=== PATIENT | male | born 1945 | race Caucasian/White ===

== ENCOUNTER 2016-05-28 20:26 | Inpatient (IN) | payer MEDICARE, BC ==
--- NOTE | ~2016-05-28 | CN ---
Consultation Report [place] [id number] [place]. [address] NAME: MIAN STANLEY : 45 STATUS : ADM IN [facility]#: [id number] AGE: 70 ADM/REG DATE : 05/29/16 MR#: [id number] REPORT SERV DATE: 05/30/16 DICTATED BY: REINALDO MCRAE DATE: 05/30/16 REPORT STATUS : Draft TRANSCRIBED BY: MODL DATE: 05/30/16 HEMATOLOGY CONSULTATION DATE OF CONSULTATION: REASON FOR CONSULTATION: Lymphadenopathy, suspected lymphoma. HISTORY OF PRESENT ILLNESS: The patient is a very pleasant 70-year-old gentleman with a past medical history significant for CAD, diabetes, and hypertension. He presented to the emergency room recently with slowly progressive weakness and shortness of breath. The patient and his family tell me the symptoms have worsened over the past twelve months. He has had a weight loss of approximately 30 pounds. There is no history of fevers, chills, or drenching night sweats. Mr. Stanley states that, he stopped taking his diabetic and hypertension medications approximately nine months ago. No reason is offered as an explanation. On presentation, admission labs were significant for abnormal liver function tests, elevated bilirubin as well as anemia and thrombocytopenia. Imaging revealed diffuse lymphadenopathy involving the mediastinum, axilla, abdomen. In addition, splenomegaly was present as well as ascites. The patient also had bilateral pleural effusions. Pulmonary was consulted, and yesterday the patient underwent diagnostic and therapeutic thoracentesis. Cytology was sent and is currently pending. Presently, Mr. Stanley is fatigued, somewhat terse in his replies. His affect is flat. He denies pain. PAST MEDICAL HISTORY: 1. Diabetes. 2. Coronary artery disease. 3. Hypertension. PAST SURGICAL HISTORY: Denies. ALLERGIES: FLEXERIL, UNKNOWN REACTION. CURRENT MEDICATIONS: Include albuterol, aspirin, carvedilol, Lovenox, Zetia, insulin, Spiriva, Levaquin, lisinopril, Claritin, nicotine patches, simvastatin, and tiotropium inhaler. FAMILY HISTORY: Notable for diabetes and CVA. SOCIAL HISTORY: The patient is . He is a smoker. No history of heavy alcohol use. Consultation Report [place] [address] [facility] [place]. [address] NAME: MIAN STANLEY DOB: [birth year] STATUS : ADM IN PAT#: [id number] AGE: 70 ADM/REG DATE : 05/29/16 MR#: [id number] REPORT SERV DATE: 05/30/16 DICTATED BY: REINALDO MCRAE. DATE: 05/30/16 REPORT STATUS : Draft TRANSCRIBED BY: SULY DATE: 05/30/16 REVIEW OF SYSTEMS: Eleven system review of systems was performed and is positive for those things noted in the HPI. PHYSICAL EXAMINATION: VITAL SIGNS: Temperature 97.7, pulse 100, respirations 20, blood pressure 130/57. GENERAL: Chronically ill-appearing male, in no acute distress. HEAD: Atraumatic and normocephalic. HEENT: Scleral icterus is noted. Some bitemporal wasting noted. No thrush. NECK: Lymphadenopathy noted. No thyromegaly. PULMONARY: Coarse breath sounds bilaterally. Decreased at bases. CARDIAC: Regular rate and rhythm with systolic murmur appreciated. ABDOMEN: Mildly distended. Nontender. Unable to palpate spleen tip. EXTREMITIES: Superficial bruising noted. Jaundice. Lower extremity edema noted. NEURO: Alert and oriented x3. Moves all extremities. LYMPH NODE SURVEY: Cervical lymphadenopathy appreciated. Bilateral axillary lymphadenopathy also prominent. LABORATORY STUDIES: CBC, white count 14.4, hemoglobin 10, platelets 101. Chemistries, sodium 130, glucose 125, total protein 5.7, albumin 2.7, bilirubin 4.5, alkaline phosphatase 644, ALT 31, AST 25. ASSESSMENT AND PLAN: This is an unfortunate 70-year-old gentleman with a history of coronary artery disease, diabetes, and hypertension, who presents with diffuse lymphadenopathy concerning for lymphoma or other malignancy. I agree with your workup. I await results from thoracentesis, particularly cytology. Occasionally, we were able to make a diagnosis from the pleural fluid. If this test is nondiagnostic, then I would recommend excisional lymph node biopsy. I will follow with you. More recommendations to follow once we have established the tissue diagnosis. BRIELLE/SULY Reinaldo Mcrae M.D. / [id number] CC: Consultation Report [facility] [address] [place]. [address] NAME: MIAN STANLEY : [birth year] STATUS : ADM IN PAT#: [id number] AGE: 70 ADM/REG DATE : 05/29/16 MR#: [id number] REPORT SERV DATE: 05/30/16 DICTATED BY: REINALDO MCRAE DATE: 05/30/16 REPORT STATUS : Draft TRANSCRIBED BY: MODL DATE: 05/30/16 Mark Anderson MD
--- NOTE | ~2016-05-28 | PUL ---
[id number] [place]. [address] NAME: MIAN HOLLAND : [birth year] STATUS : ADM IN PAT#: [id number] AGE: 70 ADM/REG DATE : 05/29/16 MR#: [id number] REPORT SERV DATE: 06/05/16 DICTATED BY: ARON BRAUN DATE: 06/05/16 REPORT STATUS : Draft TRANSCRIBED BY: MODL DATE: 06/05/16 PULMONARY FUNCTION TEST DATE OF TESTIN06/04/2016 DIAGNOSIS: Left pleural effusion. COMMENTS: "Patient tried multiple attempts. States he has no more energy to try more testing." RESULTS: 1. FEV1 of 1.60 L (51% of predicted). 2. FVC 2.33 L (55% of predicted). 3. FEV1/FVC ratio 68%. 4. DLCO 33% of predicted. 5. DLCO/VA 71% of predicted. IMPRESSION: There is moderately severe obstructive ventilatory impairment. The forced vital capacity has reduced suggestive of restriction. The diffusing capacity is severely reduced, but corrects to a mild reduction when adjusted for alveolar volume. There are other prior studies for comparison purposes. PS/MODL Aron Braun M.D. / [id number] CC: Juan Lowe M.D.
--- NOTE | ~2016-05-28 | CN ---
Consultation Report [facility] [address] [place]. [address] NAME: MIAN STANLEY : 45 STATUS : ADM IN [facility]#: [id number] AGE: 70 ADM/REG DATE : 05/29/16 MR#: [id number] REPORT SERV DATE: 06/03/16 DICTATED BY: LISSETTE RANDHAWA DATE: 06/03/16 REPORT STATUS : Draft TRANSCRIBED BY: MODL DATE: 06/03/16 GI CONSULTATION NOTE DATE OF CONSULTATION: 06/02/2016 REASON FOR CONSULTATION: Overload. HISTORY OF PRESENT ILLNESS: Mr. Stanley is a 70-year-old, white male, who initially presented to [facility] on the with weakness, pruritus, dyspnea on exertion, as well as orthopnea. This had been ongoing for several months at least, but he had been reluctant to seek medical attention. He has a history of hypertension; coronary artery disease, status post stent in the RCA in 2013; diabetes; hypertension. He has never seen a mechanical commissioning engineer nor a chip frier in the past. He denies any alcohol use. Denies any known history of viral hepatitis or any known liver disease. FAMILY HISTORY: Diabetes and stroke. PAST MEDICAL HISTORY: Hypertension; coronary artery disease, status post stent in RCA in 2013; diabetes; and hypertension. SOCIAL HISTORY: The patient is . Continues to smoke cigarettes. Denies any alcohol or drug use. 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 ALLERGIES: FLEXERIL. MEDICATIONS: Reviewed. PHYSICAL EXAMINATION: VITAL SIGNS: The patient is afebrile. His vital signs are stable. GENERAL: The patient is awake, alert, and oriented x3. He appears chronically ill and older than stated age, but is in no acute distress. HEENT: Bitemporal wasting and scleral icterus. NECK: Mucous membranes moist. CARDIAC: S1, S2. CHEST: Clear. ABDOMEN: Distended. Bowel sounds normoactive. Positive fluid wave. LABORATORY DATA: Showed WBC 14.2, hemoglobin 8.9, hematocrit 25.3, platelets 94. INR is 1.2. Sodium 126, potassium 3.8, chloride 86, bicarb 30, BUN 16, creatinine 0.76, glucose 84. Bilirubin 2.5, AST 27, ALT 19, alkaline phosphatase 525, lipase 64. Bilirubin had initially been 4.5, also on admission. The patient had thoracentesis recently. IMPRESSION/PLAN: Fluid overload of unclear etiology. We will evaluate recent imaging that had been performed earlier to see if there are any signs of chronic liver disease, although Consultation Report [place] [id number] [place]. [address] NAME: MIAN STANLEY : 45 STATUS : ADM IN PAT#: [id number] AGE: 70 ADM/REG DATE : 05/29/16 MR#: [id number] REPORT SERV DATE: 06/03/16 DICTATED BY: LISSETTE RANDHAWA DATE: 06/03/16 REPORT STATUS : Draft TRANSCRIBED BY: MODAmy DATE: 06/03/16 in looking serologically given his thrombocytopenia and elevated INR, these are signs that his liver disease has been ongoing for quite some time. His MELD score is calculated to be 12, and if we factor in his sodium, it is calculated to be 22. Laboratory testing has already been ordered to further evaluate any causes of chronic liver disease, including viral hepatitis panel, iron including ferritin for hemochromatosis. I would also check JIMMIE, AMA, and anti-smooth muscle antibody. We will continue to follow with you. SAMMY/SULY Lissette Randhawa MD / [id number] CC: Juan Lowe M.D.
--- NOTE | ~2016-05-28 | OP ---
Record Of Operation [facility] [address] [place]. [address] NAME: MIAN HOLLAND : 45 STATUS : ADM IN PAT#: [id number] AGE: 70 ADM/REG DATE : 05/29/16 MR#: [id number] REPORT SERV DATE: 06/05/16 DICTATED BY: BRITTANI KAMINSKI III DATE: 06/05/16 REPORT STATUS : Draft TRANSCRIBED BY: MODL DATE: 06/05/16 DATE OF PROCEDURE: 06/05/2016 PREOPERATIVE DIAGNOSIS: Hodgkin lymphoma with need for Port-A-Cath placement to allow for chronic IV access for chemotherapy. POSTOPERATIVE DIAGNOSIS: Hodgkin lymphoma with need for Port-A-Cath placement to allow for chronic IV access for chemotherapy. PROCEDURE: Right subclavian Port-A-Cath placement with fluoroscopy. SURGEON: Brittani Kaminski M.D. ANESTHESIA: General with intubation. COMPLICATIONS: None. ESTIMATED BLOOD LOSS: Less than 5 mL. SPECIMENS: None. DRAINS: None. LAP AND SPONGE COUNT: Correct x3. BRIEF HISTORY: This 70-year-old male was recently diagnosed with malignant lymphoma. We were asked by his medical oncologist to place a Port-A-Cath to allow for chronic IV access for chemotherapy. This procedure, the risks, benefits, and alternatives, including not limited to the risk for bleeding, infection, pneumothorax, air embolus, pericardial tamponade, failure of the port to function, infection of the port or subclavian vein thrombosis requiring removal of the port, dislodgement of the Port-A-Cath tubing requiring extraction, and unforeseen complications including deep venous thrombosis, pulmonary embolus, myocardial infarction, stroke, pneumonia, and , were fully and completely explained to the patient prior to surgery. His questions were answered. He understood the risks and agreed to surgery as planned. DESCRIPTION OF PROCEDURE: After being properly identified and after discussing risks of surgery with him again in the preoperative area, the patient was taken to the operating room and placed in the supine position on the operating room table. General anesthesia was administered and he was intubated without difficulty. The upper chest and neck areas were prepped and draped sterilely in the usual fashion. After an appropriate "time-out" per JCAHO standards, an 18-gauge needle was used to identify the right subclavian vein. The vein was identified on the first pass of the needle. A guidewire was passed through the needle and the needle was removed. Fluoroscopy was performed, confirming the tip of the guidewire to be in the correct position in the superior vena cava. A small transverse incision was then made at the exit site of the guidewire from the skin. A subcutaneous Record Of Operation [facility] [address] [place]. [address] NAME: MIAN HOLLAND : 45 STATUS : ADM IN PAT#: [id number] AGE: 70 ADM/REG DATE : 05/29/16 MR#: [id number] REPORT SERV DATE: 06/05/16 DICTATED BY: BRITTANI KAMINSKI III DATE: 06/05/16 REPORT STATUS : Draft TRANSCRIBED BY: SULY DATE: 06/05/16 infraclavicular pocket was made of the appropriate size for the Port-A-Cath housing. The Port-A-Cath housing and tubing were assembled, flushed with a heparin solution, and the tubing cut to the appropriate length. The introducer was then placed over the guidewire as the guidewire and the inner sheath were removed. The Port-A-Cath tubing was then placed through the sheath. This went very smoothly. The Port-A-Cath was positioned in the infraclavicular pocket. It was secured in place with 2-0 silk sutures. Repeat fluoroscopy was performed, confirming the tip of the tubing to be in the correct position in the superior vena cava. The port was accessed with a Nicole needle. It was noted to aspirate blood easily. It was then flushed with heparin solution and noted to flush easily. Hemostasis was assured. The subcutaneous tissue was closed with a running 3-0 Vicryl suture, and the skin was closed with running subcuticular 4-0 Monocryl stitch. The incision was injected with 0.5% Marcaine. Dressings were applied. Anesthesia was reversed. The patient was taken to recovery room in stable condition. He tolerated the procedure well. His family was informed of results of surgery. Chest x-ray is pending at this time. The patient remains in the hospital under the care of the Hospitalist Service. MELIZA/SULY Brittani Kaminski III, M.D. / [id number] CC: Juan Lowe M.D.
--- NOTE | ~2016-05-28 | IDS ---
Interim Discharge Summary [facility] [address] [place]. [address] NAME: MINA HOLLAND : 45 STATUS : ADM IN LOC[facility] WITHIN [facility]#: [id number] AGE: 70 ADM/REG DATE : 05/29/16 MR#: [id number] REPORT SERV DATE: 06/01/16 DICTATED BY: MARK GARCIA DATE: 06/01/16 REPORT STATUS : Draft TRANSCRIBED BY: MODL DATE: 06/01/16 ADMISSION DATE: 05/29/2016 DISCHARGE DATE: WORKING DIAGNOSES: 1. Probable lymphoma with extensive adenopathy, getting excisional biopsy of axillary lymph node today. 2. Bilateral pleural effusion, left greater than right, status post left thoracentesis with negative malignant cells in the pleural fluid. 3. Periportal edema with hyperbilirubinemia and elevated LFTs, unclear etiology. 4. Splenomegaly. 5. Coronary artery disease. 6. Diabetes type 2. CONSULTS: 1. Pulmonology. 2. Oncology. 3. General Surgery. 4. GI. PROCEDURES: 1. Thoracentesis 05/29/2016, the pleural fluid was negative for malignant cells. 2. Excisional biopsy, scheduled for today. IMAGIN. CT of the chest, abdomen, and pelvis showed extensive adenopathy, likely related to lymphoma or leukemia. 2. Echocardiogram performed 05/30/2016, showed a normal ejection fraction and overall benign. HOSPITAL COURSE: This is a 70-year-old gentleman, who was admitted to the hospital with shortness of breath. The patient was found to have bilateral pleural effusions. For details, please refer to H and P by Dr. Javed. In summary, the patient had a CT of the abdomen and pelvis done due to hyperbilirubinemia, which showed extensive adenopathy. The patient then, also had CT of the chest, which again showed extensive adenopathy. Pulmonology was consulted to perform a thoracentesis. Oncology was also consulted subsequently. Pleural fluid did not have any malignant cells and thus General Surgery was consulted for excisional biopsy, which will be today. Also, regarding periportal edema with hyperbilirubinemia as one of the findings on CT of the abdomen and pelvis, it was initially thought to be possibly due to congestive heart failure; however, echocardiogram was benign. GI was consulted today for that. DISPOSITION: To follow up excisional biopsy preliminary results and oncologist's recommendations. Also, follow up on GI consultation that was placed today. Interim Discharge Summary [place] [address] [place]. [address] NAME: MIAN HOLLAND : [birth year] STATUS : ADM IN LOC[facility] WITHIN [facility]#: [id number] AGE: 70 ADM/REG DATE : 05/29/16 MR#: [id number] REPORT SERV DATE: 06/01/16 DICTATED BY: MARK GARCIA DATE: 06/01/16 REPORT STATUS : Draft TRANSCRIBED BY: SULY DATE: 06/01/16 [facility] [place]SULY Mark Garcia MD / [id number] CC: Mark Garcia MD
--- NOTE | ~2016-05-28 | CN ---
Consultation Report [facility] [address] [place]. [address] NAME: MIAN HOLLAND : 45 STATUS : ADM IN [facility]#: [id number] AGE: 70 ADM/REG DATE : 05/29/16 MR#: [id number] REPORT SERV DATE: 06/04/16 DICTATED BY: BRITTANI KAMINSKI III DATE: 06/04/16 REPORT STATUS : Draft TRANSCRIBED BY: SULY DATE: 06/04/16 DATE OF CONSULTATION: 06/04/2016 ADDENDUM: We have been asked to place a Port-A-Cath for this patient to allow for chronic IV access for his recently diagnosed malignancy. We will schedule him for subclavian Port-A- Cath placement. This procedure, the risks, benefits, and alternatives, including not limited to the risk for bleeding, infection, pneumothorax, air embolus, pericardial tamponade, failure of the port to function, infection of the port, or subclavian vein thrombosis requiring removal the port, dislodgement of the Port-A-Cath tubing requiring extraction, and unforeseen complications including deep venous thrombosis, pulmonary embolus, myocardial infarction, stroke, pneumonia, and , have been explained the patient prior to surgery. His questions have been answered. He understands the risk and agrees to surgery as planned. MELIZA/SULY Brittani Kaminski III, M.D. / [id number] CC: Juan Lowe M.D.
--- NOTE | ~2016-05-28 | HP ---
History And Physical [id number] [place]. [address] NAME: MIAN HOLLAND : 45 STATUS : ADM IN PAT#: [id number] AGE: 70 ADM/REG DATE : 05/29/16 MR#: [id number] REPORT SERV DATE: 05/29/16 DICTATED BY: NANCY PATEL DATE: 05/29/16 REPORT STATUS : Draft TRANSCRIBED BY: MODL DATE: 05/29/16 DATE OF ADMISSION: 05/29/2016 CHIEF COMPLAINT: 70-year-old male presenting with volume overload, abdominal distention, and severe itching. HISTORY OF PRESENT ILLNESS: The patient's history was obtained through careful interview with the patient, , and son, coupled with review of [facility] medical records. The patient quit taking all of his chronic medications about 9 months ago. He had previously been on blood thinner for coronary artery disease(Effient). Blood pressure medication such as lisinopril and clonidine and he had also been on diabetic medications such as Amaryl(the patient can give no clear explanation for why he decided to stop taking his medications but he kept most of this from his family and also over this last 9 months has refused to go see a physician to follow up his general care). Over these last 9 months then he has lost about 30 pounds and has become increasingly and progressively debilitated and ill. One thing that has really bothered him has been itching, that has been present for about 9 months but has really progressed over these last four to six weeks and has caused considerable agitation. The patient has also had shortness of breath characterized by dyspnea on exertion but also suffers from orthopnea and significant paroxysmal nocturnal dyspnea in the evening becoming quite restless. He has had a very good appetite and the family states "he constantly eats" despite having weight loss. He has also developed increasing lower extremity edema over the last five months or so but it is really progressed again over these last four or five weeks. He also describes abdominal distention with diffuse abdominal discomfort, nonfocal, tightness quality, 7 to 8/10 severity. Occasionally, he has had loose stools with bowel incontinence. He describes nausea, but no vomiting. Over the last two months, he has had 5 falls the family believes and has finally over the last week or two become "too weak to walk even." REVIEW OF SYSTEMS: Otherwise, 14-point review of systems was obtained and was negative. PAST MEDICAL HISTORY: 1. Coronary artery disease, status post stent placement x2 to the RCA in 2013 under the History And Physical [id number] [facility] [place]. [address] NAME: MIAN HOLLAND : 45 STATUS : ADM IN [facility]#: [id number] AGE: 70 ADM/REG DATE : 05/29/16 MR#: [id number] REPORT SERV DATE: 05/29/16 DICTATED BY: NANCY PATEL DATE: 05/29/16 REPORT STATUS : Draft TRANSCRIBED BY: SULY DATE: 05/29/[address] Jung. 2. Diabetes. 3. Hypertension. PAST SURGICAL HISTORY: Denies any. ALLERGIES: FLEXERIL. SOCIAL HISTORY: He is . Smokes cigarettes. No alcohol abuse. Retired from the [employer] Has two sons. FAMILY HISTORY: Diabetes, stroke. No heart disease. No liver disease in the family. CURRENT MEDICATIONS: The patient has been taking anti-itching medication but has been noncompliant with clonidine, Amaryl, lisinopril, and Effient. PHYSICAL EXAMINATION: VITAL SIGNS: Temperature 98.3, pulse 88, blood pressure 133/51, respiratory rate 16, O2 saturation 98% on 2 L nasal cannula. GENERAL: This patient is "bizarre" by my own evaluation. He has an odd affect and seems at times to be poorly oriented to his recent history and slow in his response to questioning. He appears chronically ill but in no apparent acute distress by my exam. HEENT: Pupils equal, round, and reactive to light. No conjunctival pallor. There is mild scleral icterus. Nares are patent. Oropharynx is clear of obstruction. Moist mucous membranes. NECK: Trachea midline. No thyromegaly. LYMPH: No cervical lymphadenopathy. No supraclavicular lymphadenopathy. RESPIRATORY: The patient has absent breath sounds in the left lung and he has dullness to percussion that extends from the base of the lung up to about 3/4 heights on his left lung suggesting quite large and extensive left pleural effusion. There are wet rales at the base of the right lung. No wheezes. No rhonchi. The patient does have a labored respiratory effort. CARDIOVASCULAR: Regular rate and rhythm. I do appreciate 3/6 "singing" high-pitched murmur through the precordium that also seems to radiate upward through his chest and towards the neck. No rubs. I do not appreciate a gallop at this time. There is some jugular venous distention on the right side that pulsates and the patient does have significant deeply pitting lower extremity edema that extends up to the thighs symmetrically. ABDOMEN: Quite distended by exam but no tympanic resonance on percussion but I do not appreciate at this time specific fluid wave. I do not appreciate hepatosplenomegaly either by exam. He is diffusely tender by exam but there is no guarding. No rebound. It is a nonfocal exam. DERMATOLOGIC: The patient is obviously jaundiced. He seems to have peripheral pallor as well but no cyanosis and he has dry, warm extremities. PSYCHIATRIC: The patient has a flat and bizarre affect. He seems to be in an irritable mood but denies depression nor anxiety. He is alert, slow in his responses but is oriented to location and general aspects of time but seems poorly oriented to recent history. History And Physical [address] [address] NAME: MIAN HOLLAND : 45 STATUS : ADM IN [facility]#: [id number] AGE: 70 ADM/REG DATE : 05/29/16 MR#: [id number] REPORT SERV DATE: 05/29/16 DICTATED BY: NANCY PATEL DATE: 05/29/16 REPORT STATUS : Draft TRANSCRIBED BY: SULY DATE: 05/29/16 LABORATORY DATA: White blood count 14.7, hemoglobin 9.6, hematocrit 29, platelets 99. Sodium 131, potassium 3.9, chloride 91, bicarb 28, BUN 11, creatinine 0.6, glucose 143. Brain natriuretic peptide 494, albumin 2.8. Troponin negative. Total bilirubin 3.6, alkaline phosphatase 642, ALT 33, AST 27, INR 1.2. Alcohol level negative. Urinalysis shows 3 hyaline casts but no evidence of infection. STUDIES: Chest x-ray shows a very large pleural effusion and large right atelectasis versus infiltrate/edema? ASSESSMENT AND PLAN: 1. Large left pleural effusion question malignancy versus other cause. We will ask for an ultrasound-guided thoracentesis for diagnostic and therapeutic purposes. 2. Congestive heart failure exacerbation, new diagnosis, with a murmur. We will check an echocardiogram. Place on IV diuretic, ABDIFATAH inhibitor, Coreg. 3. Cholestatic liver disease. I would like to rule out cholelithiasis but no abdominal pain that is specific on exam. Check a CT scan of the abdomen and pelvis. Check hepatitis panel. Consider the possibility of a congestive liver disease from chronically uncontrolled congestive heart failure and volume overload? I also believe the patient may have likely a concomitant ascites? and I questioned the possibility of malignancy? 4. Coronary artery disease with stents in RCA 2013, holding Effient for procedure. The patient has been noncompliant with his medications for about 9 months. 5. Diabetes. Check hemoglobin A1c. Noncompliant with medications for about [address] on sliding scale insulin for now and monitor. KPL/MODL Nancy Patel M.D. / [id number] CC: MD Ben Gregorio M.D.
--- NOTE | ~2016-05-28 | DS ---
Discharge Summary [facility] [address] [place]. [address] NAME: MIAN HOLLAND : 45 STATUS : ADM IN [facility]#: [id number] AGE: 70 ADM/REG DATE : 05/29/16 MR#: [id number] REPORT SERV DATE: 06/05/16 DICTATED BY: CHARLEY CHAWLA DATE: 06/05/16 REPORT STATUS : Draft TRANSCRIBED BY: MODL DATE: 06/05/16 ADMISSION DATE: 05/29/2016 DISCHARGE DATE: 06/05/2016 FINAL HOSPITAL DIAGNOSES: 1. Hodgkin lymphoma. 2. Pleural effusion. 3. Periportal edema. 4. Splenomegaly. 5. History of coronary artery disease. 6. Diabetes. CONSULTATIONS/PROCEDURES: As listed on the interim summary with the addition of port placement, second bone marrow biopsy. CURRENT PHYSICAL FINDINGS AND HPI: Please see original H and P, as well as interim summary by Dr. Anderson. I took over the patient's care on the and will dictate from that time. The patient on the had undergone initial evaluation and was being worked up for lymphoma. He was complaining of pruritus, he had already been placed on Questran and antihistamines. Pulmonary continued to follow him, and at that point, he had already had a diagnosis of a pleural effusion. He was getting inhaler treatments in doing well. On the , GI had seen the patient concerning his portal edema. It was felt most likely secondary to lymphoma. Initial biopsy seemed to indicate a Hodgkin lymphoma. Oncology continued to follow also, and in preparation for potential treatment, he underwent echocardiogram, PFTs, and an outpatient PET-CT was scheduled. Additional bone marrow was requested for flow cytometry on the and done without incident. On the , he underwent port placement and was cleared for discharge afterwards by Surgery. Pulmonary had also signed off. His effusion seems stable and he was outpatient followup. Oncology had cleared him for discharge past port placement and PET scan schedule. GI had additional evaluation, but the patient preferred to do as an outpatient. The patient had no further questions and wished to be discharged on the evening of the for continued outpatient evaluation and eventual treatment for his lymphoma. DISPOSITION: He is discharged home. MEDICATIONS: Prescriptions were written for Spiriva, albuterol, and Breo Ellipta. I wrote him a prescription for Coreg 3.125, which was a dose decrease; Lortab #20, no refills; Lasix 40 one per day to replace his IV Lasix he has been getting here; and potassium 10. He will resume aspirin 81; Vytorin 01/01; Prinivil 40; Claritin 10; Tylenol p.r.n.; Colace 100; Amaryl 2 mg with breakfast and supper, would not take unless his blood sugars were over 150. Will schedule outpatient PET. Patient will call Oncology for followup instructions on Wednesday. TLF/MODL Discharge Summary [address] [address] NAME: MIAN HOLLAND : 45 STATUS : ADM IN [facility]#: [id number] AGE: 70 ADM/REG DATE : 05/29/16 MR#: [id number] REPORT SERV DATE: 06/05/16 DICTATED BY: CHARLEY CHAWLA DATE: 06/05/16 REPORT STATUS : Draft TRANSCRIBED BY: MODL DATE: 06/05/16 Charley Chawla M.D. / [id number] CC: Charley Chawla M.D.
--- NOTE | ~2016-05-28 | CN ---
Consultation Report [facility] [address] [place]. [address] NAME: MIAN STANLEY : 45 STATUS : ADM IN PAT#: [id number] AGE: 70 ADM/REG DATE : 05/29/16 MR#: [id number] REPORT SERV DATE: 05/29/16 DICTATED BY: KANE KELLY DATE: 05/29/16 REPORT STATUS : Draft TRANSCRIBED BY: MODL DATE: 05/29/16 CONSULTATION DATE OF CONSULTATION: 05/29/2016 CHIEF COMPLAINT: Shortness of breath in a patient with large bilateral pleural effusions as well as a lower lung mass. HISTORY OF PRESENT ILLNESS: Mr. Mian Stanley is an ill-appearing 70-year-old white male with a past medical history significant for coronary artery disease, status post stenting, diabetes and hypertension, who presents to [facility] Emergency Room with complaints of shortness of breath, weakness, and pruritus over the last few months. It should be noted that the patient has not been hospitalized recently. Mr. 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 He does not usually require supplemental oxygen. He is on no nebulized medications. He largely denies symptomatology related to obstructive sleep apnea. The patient has smoked up until the time of presentation. He has smoked approximately one pack a day for the last 55 years. He describes his exercise tolerance as being quite limited, only being able to ambulate around his house before experiencing some degree of shortness of breath. The patient states that he began to feel poorly approximately 10 months ago. He has had generalized weakness as well as diffuse pruritus. He has sought care at his primary care as well as Dermatology without any resolution of this complaint. More recently, he began to feel worsening shortness of breath as well as weakness to the point that he has difficulty ambulating and eventually presented to [facility] Emergency Room. Upon arrival, he was found to be normotensive and afebrile. His oxygenation was 98% on 2 L. Initial blood work revealed a white blood cell count of 14,700. BNP was elevated at 494.4. Liver function demonstrated an alkaline phosphatase of 642, total bilirubin was 3.6. A chest x-ray was obtained, which revealed a large left pleural effusion. Given the concern for liver disease, he did undergo a CT of the abdomen, which demonstrated periportal edema and fluid in the gallbladder fossa. Passive liver congestion was appreciated as well. Marked splenomegaly was seen as well. Abdominal adenopathy was appreciated, suggesting possible lymphoma or a metastatic disease. In his lower chest, a 5.2 x 3.7 cm mass was appreciated as well. For the aforementioned reasons, the patient has been referred to the Pulmonary Service for further assessment. Currently, Mr. Stanley's main pulmonary complaint is shortness of breath. This is worse on exertion and relieved by rest. He does have a cough that is producing some nonpurulent sputum. He denies any wheezing in his chest. He has had no episodes of hemoptysis. He denies any recent pneumonias. He denies any recent episodes of aspiration. The patient does have a history of coronary artery disease and hypertension. He currently denies any angina or palpitations. He has had some mild lower extremity edema as of late. Consultation Report [id number] [facility] [place]. [address] NAME: MIAN STANLEY : 45 STATUS : ADM IN [facility]#: [id number] AGE: 70 ADM/REG DATE : 05/29/16 MR#: [id number] REPORT SERV DATE: 05/29/16 DICTATED BY: KANE KELLY DATE: 05/29/16 REPORT STATUS : Draft TRANSCRIBED BY: SULY DATE: 05/29/16 In regard to constitutional symptoms, he currently denies fever, chills, nausea, vomiting, chest pain, and abdominal pain. PAST MEDICAL HISTORY: 1. Coronary artery disease, status post stenting. 2. Diabetes mellitus. 3. Hypertension. 4. Ongoing tobacco dependency. PAST SURGICAL HISTORY: The patient denies previous surgical procedures. FAMILY HISTORY: The patient denies family history of lung disease. SOCIAL HISTORY: The patient is . He has two sons, who are in good health. He retired from the [employer] and confirms extensive exposures to noxious fumes over the years. He denies any specific inhalation injuries. TOBACCO/ALCOHOL: As previously mentioned, the patient continues to smoke cigarettes up until the time of presentation. He has smoked approximately one pack a day for the last 55 years. He denies any recent alcohol or illicit drug use. REVIEW OF SYSTEMS: A complete review of systems was performed with the pertinent positives and negatives contained within the body of the HPI. PHYSICAL EXAMINATION: VITAL SIGNS: Blood pressure is 124/60, heart rate is 94, T-max is 97.6, respiratory rate is 20, SpO2 is 94% on room air. GENERAL: The patient is an ill-appearing 70-year-old white male, who is not currently in any acute distress. SKIN: The patient does have a yellowish pallor, approaching jaundice. He has innumerable excoriations on his scan from itching. Nails are clear without cyanosis or clubbing. HEENT: Head, skull is normocephalic and atraumatic. Facies symmetric, no masses or lesions. Eyes, mild icteric conjunctivae. Extraocular movements are intact. Pupils are equal, round, and reactive to light. Ears, auricles and tragus without pain to palpation. Hearing is grossly intact. Nose, bilateral nasal patency. Sinuses without tenderness upon palpation. Throat, the patient is edentulous in the uppers. Lips, oral mucosa, tongue, palate, and pharynx are pink and moist without lesions. NECK: Supple. Trachea midline. No cervical lymphadenopathy. THORAX/LUNGS: Thorax is symmetric with equal chest rise. A few scattered rhonchi as well as essentially absent breath sounds in the posterior bases. CARDIOVASCULAR: Regular rate and rhythm. No murmurs, rubs, or gallops. ABDOMEN: Mildly distended. Liver is palpable. PERIPHERAL VASCULAR: Very mild lower extremity edema. 2+ pulses in the radial. Consultation Report [address] [place]. [address] NAME: MIAN STANLEY : 45 STATUS : ADM IN [facility]#: [id number] AGE: 70 ADM/REG DATE : 05/29/16 MR#: [id number] REPORT SERV DATE: 05/29/16 DICTATED BY: KANE KELLY DATE: 05/29/16 REPORT STATUS : Draft TRANSCRIBED BY: MODL DATE: 05/29/16 MUSCULOSKELETAL: Full AROM, PROM in all joints. NEUROLOGIC: Cranial nerves II through XII grossly intact. Good muscle bulk and tone bilaterally. PSYCHIATRIC: The patient demonstrates good judgment and insight. The patient is alert and oriented x3. ACCESSORY DATA: Reveals white blood cell count of 15,300; hemoglobin and hematocrit of 9.3 and 27.7; platelets are 92. PT/INR is 15.4 and 1.2. Procalcitonin is 0.52. Total bilirubin is 3.6, alkaline phosphatase is 608. BNP is 454.2. Chest, portable, reveals a large left pleural effusion. IMPRESSION: 1. Bilateral pleural effusions, left greater than right. 2. A 5.2 x 3.7 cm lung mass. 3. Clinical chronic obstructive pulmonary disease. 4. Tobacco abuse, complicated. 5. Congestive heart failure. 6. Liver dysfunction. PLAN: 1. In regard to the patient's bilateral pleural effusions, these certainly could be secondary to volume overload as well as concomitant liver disease. Malignancy cannot be excluded, especially in the setting of a thoracic mass as well as diffuse lymphadenopathy. We will plan for a therapeutic and diagnostic thoracentesis. We will follow with a CT of the chest and better evaluate the lung mass and associated structures. 2. In regard to the patient's lung mass, again we will follow further recommendations following imaging studies. This could potentially be amenable to bronchoscopy moving forward. 3. In regard to the patient's COPD, we will place him on an armamentarium of nebulized medications and assist with his pulmonary toilet. 4. In regard to the patient's ongoing tobacco abuse, we have spent greater than 10 minutes counseling the patient on the benefits of smoking cessation. The aforementioned impression and plan has been discussed with Dr. Doty, who will follow further recommendations. We thank you for this consult and look forward to participating in the care of Mian Stanley. GBS/MODL Kane Kelly PA-C Consultation Report [address] [address] NAME: MIAN STANLEY : 45 STATUS : ADM IN PAT#: [id number] AGE: 70 ADM/REG DATE : 05/29/16 MR#: [id number] REPORT SERV DATE: 05/29/16 DICTATED BY: KANE KELLY DATE: 05/29/16 REPORT STATUS : Draft TRANSCRIBED BY: MODL DATE: 05/29/16 / [id number] CC: Mark Anderson MD
--- NOTE | ~2016-05-28 | CN ---
Consultation Report [address] [place]. [address] NAME: MIAN HOLLAND : 45 STATUS : ADM IN PAT#: [id number] AGE: 70 ADM/REG DATE : 05/29/16 MR#: [id number] REPORT SERV DATE: 06/01/16 DICTATED BY: BRITTANI STOKES III DATE: 06/01/16 REPORT STATUS : Draft TRANSCRIBED BY: MODAmy DATE: 06/01/16 CONSULT DATE OF CONSULTATION: 06/01/2016 REASON FOR CONSULT: 1. Diffuse lymphadenopathy. 2. Recommendation regarding lymph node biopsy. HISTORY OF PRESENT ILLNESS: I am asked to see this 70-year-old male in the hospital today for the above reasons. The patient complains of dyspnea, abdominal distention, and itching. The patient was admitted to the hospital emergently with volume overload associated with 30 pound weight loss and progressive debilitation. He was found to have diffuse lymphadenopathy. The patient has a history of tobacco abuse and probable chronic lung disease. He complains of generalized weakness and some dyspnea. PAST MEDICAL HISTORY: 1. History of lower extremity edema. 2. History of frequent falls. 3. History of 30-pound weight loss. 4. Coronary artery disease. 5. History of coronary artery stent placement. 6. Tobacco abuse. 7. Diabetes mellitus. 8. Hypertension. ALLERGIES: FLEXERIL. SOCIAL HISTORY: The patient is . He has a history of tobacco abuse. He is retired. FAMILY HISTORY: Remarkable for stroke. MEDICATIONS: Clonidine, Amaryl, lisinopril, and Effient. PHYSICAL EXAMINATION: GENERAL: This is a chronically ill appearing male, in no acute distress. He is slightly dyspneic at rest. He has a productive cough. VITAL SIGNS: Blood pressure 121/58, temperature 98.1, pulse 90. HEENT: Remarkable for diffuse lymphadenopathy in the neck and supraclavicular areas. Both left and right axilla are remarkable for markedly enlarged lymph nodes. LUNGS: Remarkable for few rhonchi. Consultation Report [address] [id number] [facility] [place]. [address] NAME: MIAN HOLLAND : 45 STATUS : ADM IN PAT#: [id number] AGE: 70 ADM/REG DATE : 05/29/16 MR#: [id number] REPORT SERV DATE: 06/01/16 DICTATED BY: BRITTANI STOKES III DATE: 06/01/16 REPORT STATUS : Draft TRANSCRIBED BY: SULY DATE: 06/01/16 ABDOMEN: Soft and nontender. Groins are remarkable for palpably enlarged lymph nodes. LABORATORY DATA: Hematocrit 25, white blood cell count 13.9. Sodium is 120. CT scan of the abdomen and pelvis on admission, which I reviewed, shows diffuse lymphadenopathy including splenomegaly, extensive mediastinal axillary lower neck adenopathy as well as supracarinal mass. ASSESSMENT: 1. 70-year-old male with diffuse lymphadenopathy, associated with weight loss, probable malignancy such as lymphoma. 2. History of tobacco abuse. 3. History of probable chronic COPD secondary to tobacco abuse. 4. Coronary artery disease. 5. History of coronary artery stent placement. 6. Hypertension. 7. Diabetes mellitus. PLAN: The patient's most enlarged lymph node is in the left axilla. I will schedule the patient today for left axillary lymph node biopsy. This procedure, the risks, benefits, and alternatives, including not limited to the risk for bleeding, infection, pain, swelling, scarring, deformity to the area, seroma formation, hematoma formation, nerve injury, chronic paresthesia, pain, numbness, neuralgia or neuroma of the involved extremity, nerve injury, muscle weakness or paralysis in muscles of upper back or shoulder, chronic lymphatic drainage, lymphocele formation, chronic lymphedema of the arm, and unforeseen complications including deep venous thrombosis, pulmonary embolus, myocardial infarction, stroke, pneumonia, and , have been explained to the patient prior to surgery. His questions have been answered. He understands the risks and agrees to the surgery as planned. MELIZA/SULY Brittani Stokes III, M.D. / [id number] CC: Mark Anderson MD
--- NOTE | ~2016-05-28 | OP ---
Record Of Operation [facility] [address] [place]. [address] NAME: MIAN HOLLAND : 45 STATUS : ADM IN [facility]#: [id number] AGE: 70 ADM/REG DATE : 05/29/16 MR#: [id number] REPORT SERV DATE: 06/02/16 DICTATED BY: BRITTANI KAMINSKI III DATE: 06/02/16 REPORT STATUS : Draft TRANSCRIBED BY: MODL DATE: 06/02/16 DATE OF PROCEDURE: 06/01/2016 PREOPERATIVE DIAGNOSIS: Diffuse lymphadenopathy, concern for lymphoma or other malignancy. POSTOPERATIVE DIAGNOSIS: Diffuse lymphadenopathy, concern for lymphoma or other malignancy. PROCEDURE: Excisional biopsy of the deep left axillary lymph node. SURGEON: Brittani Kaminski M.D. ANESTHESIA: General with intubation. COMPLICATIONS: None. ESTIMATED BLOOD LOSS: Less than 5 mL. SPECIMENS: Lymph node from left axilla. DRAINS: None. LAP AND SPONGE COUNT: Correct x3. BRIEF HISTORY: This 70-year-old male had been admitted to the hospital emergently with dyspnea, pleural effusions, and massive upper body lymphadenopathy. It was felt that excisional biopsy of one of his deep left axillary lymph nodes, which was the most successful, was indicated. This has been ordered to obtain a diagnosis regarding the patient's probable underlying malignancy. Regarding the surgery, the procedure, the risks, benefits, and alternatives, including not limited to the risk for bleeding, infection, pain, swelling, scarring, deformity to the area, seroma formation, hematoma formation, nerve injury, chronic paresthesia or pain in the shoulder, arm, or axilla, nerve injury with muscle weakness or paralysis in muscles of the upper back or shoulder, chronic lymphedema of the arm, and unforeseen complications including deep venous thrombosis, pulmonary embolus, myocardial infarction, stroke, pneumonia, and , were explained to the patient prior to surgery. His questions were answered. He understood the risks and agreed to the surgery as planned. PROCEDURE IN DETAIL: After being properly identified and after discussing the risks of surgery with him again in the preoperative area, the patient was taken to the operating room and placed in the supine position on the operating room table. General anesthesia was administered. He was intubated without difficulty. The left axilla, chest, and arm were prepped and draped sterilely in the usual fashion. After an appropriate "time-out" per [employer] standards, a small transverse incision was made in the left axilla. The incision was continued through subcutaneous tissue. Hemostasis was controlled with cautery. The incision continued into the axilla. An extremely large lymph node was identified. This was about 3 cm in size. This lymph node was resected and completely removed. Hemostasis was Record Of Operation [address] [place]. [address] NAME: MIAN HOLLAND : 45 STATUS : ADM IN [facility]#: [id number] AGE: 70 ADM/REG DATE : 05/29/16 MR#: [id number] REPORT SERV DATE: 06/02/16 DICTATED BY: BRITTANI KAMINSKI III DATE: 06/02/16 REPORT STATUS : Draft TRANSCRIBED BY: SULY DATE: 06/02/16 assured. The wound was irrigated copiously with saline. The subcutaneous tissue was closed with a running 3-0 Vicryl suture. The skin was closed with running subcuticular 4-0 Monocryl stitch. The incision was injected with 0.5% Marcaine. Dressings were applied. Anesthesia was reversed and the patient was taken to the recovery room in stable condition. He tolerated the procedure well. He will remain in the hospital for care regarding his multiple medical problems. MELIZA/SULY Brittani Kaminski III, M.D. / [id number] CC: Juan Lowe M.D.
--- NOTE | ~2016-05-28 | OP ---
Record Of Operation [facility] [address] [place]. [address] NAME: MIAN HOLLAND : 45 STATUS : ADM IN PAT#: [id number] AGE: 70 ADM/REG DATE : 05/29/16 MR#: [id number] REPORT SERV DATE: 05/29/16 DICTATED BY: KANE KELLY DATE: 05/29/16 REPORT STATUS : Draft TRANSCRIBED BY: SULY DATE: 05/29/16 DATE OF PROCEDURE: 05/29/2016 TIME: 1430 hours. PROCEDURE: Ultrasound guided left-sided thoracentesis. INDICATION: A large left-sided pleural effusion. PROCEDURE TANK BUILDER AND ERECTOR: Andrew Kelly PA-C. CONSENT: Consent was obtained from the patient prior to the procedure. Diagnostic and therapeutic indications for thoracentesis were discussed as well as risks including life- threatening bleeding, pneumothorax, and even the possible necessity of chest tube placement. Benefits and alternatives were explained at length. Prior to the procedure, imaging studies were reviewed with Dr. Doty who agreed with the indication to proceed with thoracentesis. PROCEDURE SUMMARY: A time out was performed verifying correct patient, procedure, site, and positioning. The patient's left chest was prepped and draped in a sterile manner using chlorhexidine scrub after the appropriate level was percussed and confirmed by ultrasound. U/S images were obtained and placed within the chart. 2% lidocaine with epinephrine was then used to anesthetize the region. A finder needle was then used to aspirate clear to straw-colored pleural fluid. A 10-blade scalpel was then used to make a small incision. The thoracentesis catheter was then threaded into the pleural space without difficulty. The patient had 1500 mL of straw-colored fluid removed. No immediate complications were noted during the procedure. A post-procedure chest x-ray is pending at the time of this dictation. The fluid will be sent for several studies. ESTIMATED BLOOD LOSS: Minimal. GBS/STEPHANIEL Kane Kelly PA-C / [id number] CC: Mark Anderson MD
[~2016-05-28 20:26] MED LIST: AMARYL2 PO; ASAB PO; BRILINTA90 MG PO; CAT1 PO; COREG6 PO; LISINOPRIL40 MG PO; PRIN20 PO; VITAMIN D1000 UNI1 PO; X5 PO
[2016-05-28 21:15] LABS: BASOPHILS 0.6 %; BASOPHILS ABSOLUTE 0.09 10/3/uL (0.0-0.16); EOSINOPHILS 0.3 %; EOSINOPHILS ABSOLUTE 0.04 10/3/uL (0.0-0.53); IMMATURE GRANULOCYTES 0.8 %; IMMATURE GRANULOCYTES ABSOLUTE 0.12 10/3/uL (0.0-0.11); LYMPHOCYTES ABSOLUTE 2.66 10/3/uL (0.67-4.30); MEAN CORPUS HGB CONC 33.3 g/dL (32.0-36.0); MEAN CORPUSCULAR HEMOGLOB 30.1 pg (26.0-34.0); MEAN PLATELET VOLUME 10.1 fL (9.2-13.0); MONOCYTES 18.9 %; MONOCYTES ABSOLUTE 2.79 10/3/uL (0.21-1.20); NEUTROPHILS 61.4 %; NEUTROPHILS ABSOLUTE 9.04 10/3/uL (2.02-8.40)
[2016-05-28 21:16] LABS: ER CBC TAT 0 Hrs 09 Mins; HEMATOCRIT 28.8 % (40.0-51.0); HEMOGLOBIN 9.6 g/dL (13.6-17.8); MANUAL DIFF NO %; MEAN CORPUSCULAR VOLUME 90.3 fL (80-100); PLATELET COUNT 99 10/3/uL (150-400); RBC DISTRIBUTION WIDTH 19.3 % (12.0-16.0); RED CELL COUNT 3.19 10/6/uL (4.7-6.1); WHITE BLOOD CELLS 14.7 10/3/uL (4.5-10.5)
[2016-05-28 21:24] LABS: INTERNATIONAL NORMAL RATI 1.2 UNITS (-); PARTIAL THROMBO TIME 34.2 SEC (22.5-37.2)
[2016-05-28 21:27] LABS: AMMONIA < 10 UMOL/L (11-32)
[2016-05-28 21:31] LABS: ALBUMIN 2.8 G/DL (3.5-5.0); ALKALINE PHOSPHATASE 642 U/L (45-117); BUN (BLOOD UREA NITROGEN) 11 MG/DL (6-23); CALCIUM, SERUM 8.1 MG/DL (8.5-10.4); CHEST PAIN PROFILE TAT 0 Hrs 24 Mins; CHLORIDE, SERUM 91 MMOL/L (96-112); CO2 (CARBON DIOXIDE) 28 MMOL/L (24-34); DIRECT BILIRUBIN 1.5 MG/DL (0.0-0.4); GFR AFRICAN AMERICAN 118 ML/MIN (>=60); GFR NON AFRICAN AMERICAN 102 ML/MIN (>=60); GLUCOSE, SERUM 143 MG/DL (60-99); INDIRECT BILIRUBIN(NOT ORDER) 2.1 MG/DL (0.1-0.9); POTASSIUM, SERUM 3.9 MMOL/L (3.5-5.3); SGOT(AST) 27 U/L (5-40); SGPT(ALT) 33 U/L (5-65); SODIUM, SERUM 131 MMOL/L (135-148); TOTAL BILIRUBIN 3.6 MG/DL (0-1.2); TOTAL PROTEIN 5.9 G/DL (6.0-8.5); TROPONIN I <0.02 NG/ML (<0.05)
[2016-05-28 21:32] LABS: ACETAMINOPHEN LEVEL (TYLENOL) < 2.0 MCG/ML (10.0-20.0); ALCOHOL < 10 MG/DL (0); SALICYLATE < 1.7 MG/DL (-)
[2016-05-28 21:37] LABS: B NATRIURETIC PEPTIDE (BNP) 494.4 PG/ML (< 100.0)
[2016-05-28 23:39] LABS: ASCORBIC ACID (UR NOT ORDER) NEG (NEG); BILIRUBIN, URINE NEGATIVE (NEG); ER URINALYSIS TAT 0 Hrs 00 Mins; KETONE, URINE NEGATIVE (NEG); LEUKOCYTE ESTERASE(NOT OR NEG (NEG); NITRITE (URINE) NEG (NEG); WBC (NOT ORDERED) (RFLEX) 1 (0-5)
[2016-05-29 00:42] LABS: AMPHETAMINES (NOT ORD) NEG (NEG); BARBITURATES (NOT ORDERED NEG (NEG); BENZODIAZEPINES (NOT ORD) NEG (NEG); CANNABINOIDS (THC) NEG (NEG); COCAINE (NOT ORDERED) NEG (NEG); OPIATES NEG (NEG); PHENCYCLIDINE(PCP) NEG (NEG); TRICYCLICS NEG (NEG)
[2016-05-29] MEDS ORDERED: AMARYL2 PO (00:42)
[2016-05-29] MEDS ORDERED: CAT1 PO (00:42)
[2016-05-29] MEDS ORDERED: ATARAX50B PO (00:43)
[2016-05-29] MEDS ORDERED: LISINOPRIL40 MG PO (00:44)
[2016-05-29] MEDS ORDERED: ZESTRIL20 MG PO (00:45)
[2016-05-29] MEDS ORDERED: EFFIENT10 PO (00:46)
[2016-05-29] MEDS ORDERED: *UNABLE3 (00:57)
[2016-05-29 06:18] LABS: HEMATOCRIT 27.7 % (40.0-51.0); HEMOGLOBIN 9.3 g/dL (13.6-17.8); MEAN CORPUS HGB CONC 33.6 g/dL (32.0-36.0); MEAN CORPUSCULAR HEMOGLOB 30.3 pg (26.0-34.0); MEAN CORPUSCULAR VOLUME 90.2 fL (80-100); MEAN PLATELET VOLUME 9.9 fL (9.2-13.0); PLATELET COUNT 92 10/3/uL (150-400); RBC DISTRIBUTION WIDTH 19.4 % (12.0-16.0); RED CELL COUNT 3.07 10/6/uL (4.7-6.1); WHITE BLOOD CELLS 15.3 10/3/uL (4.5-10.5)
[2016-05-29 06:26] LABS: MANUAL DIFF YES %
[2016-05-29 06:27] LABS: INTERNATIONAL NORMAL RATI 1.2 UNITS (-); PARTIAL THROMBO TIME 35.9 SEC (22.5-37.2); PROTIME (NOT ORD) 15.4 SEC (12.0-14.5)
[2016-05-29 06:42] LABS: A/G RATIO 0.9 (0.7-1.9); ALBUMIN 2.6 G/DL (3.5-5.0); BUN (BLOOD UREA NITROGEN) 11 MG/DL (6-23); CALCIUM, SERUM 8.4 MG/DL (8.5-10.4); CHLORIDE, SERUM 92 MMOL/L (96-112); CO2 (CARBON DIOXIDE) 28 MMOL/L (24-34); CREATININE 0.64 MG/DL (0.70-1.30); DIRECT BILIRUBIN 1.5 MG/DL (0.0-0.4); GFR AFRICAN AMERICAN 115 ML/MIN (>=60); GFR NON AFRICAN AMERICAN 99 ML/MIN (>=60); GLUCOSE, SERUM 160 MG/DL (60-99); INDIRECT BILIRUBIN(NOT ORDER) 2.1 MG/DL (0.1-0.9); POTASSIUM, SERUM 3.7 MMOL/L (3.5-5.3); SGOT(AST) 25 U/L (5-40); SGPT(ALT) 30 U/L (5-65); SODIUM, SERUM 130 MMOL/L (135-148); TOTAL BILIRUBIN 3.6 MG/DL (0-1.2); TOTAL PROTEIN 5.6 G/DL (6.0-8.5); TROPONIN I <0.02 NG/ML (<0.05)
[2016-05-29 06:44] LABS: ALKALINE PHOSPHATASE 608 U/L (45-117); CK-MB 3.5 NG/ML; CPK 65 U/L (0-200); ULTRASENSITIVE TSH 0.859 MCIU/ML (0.358-3.740)
[2016-05-29 06:55] LABS: B NATRIURETIC PEPTIDE (BNP) 454.2 PG/ML (< 100.0)
[2016-05-29 07:22] LABS: PROCALCITONIN 0.52 ng/mL (<0.5)
[2016-05-29 07:27] LABS: ANISOCYTOSIS 1+ (5-10/OIF) (0-5/OIF); BAND NEUTROPHILS 1 %; EOSINOPHILS 2 %; EOSINOPHILS ABSOLUTE (CALC) 0.31 10/3/uL (0.0-0.53); LYMPHOCYTES 22 %; LYMPHOCYTES ABSOLUTE (CALC) 3.37 10/3/uL (0.67-4.30); MONOCYTES 14 %; MONOCYTES ABSOLUTE (CALC) 2.14 10/3/uL (0.21-1.20); NEUTROPHILS ABSOLUTE (CALC) 9.49 10/3/uL (2.02-8.40); PLATELET ESTIMATE DEC (ADEQUATE); SEGMENTED NEUTROPHIL (0) 61 %; TOTAL NUCLEATED CELLS 100
[2016-05-29 07:29] LABS: POLYCHROMASIA 1+ (2-5/OIF) (0-1/OIF)
[2016-05-29 08:01] LABS: GLYCOHEMOGLOBIN (HbA1c) 4.9 % (4.7-6.1)
[2016-05-29] MEDS ORDERED: HALF81 PO (12:10)
[2016-05-29] MEDS ORDERED: COREG6 PO (12:13)
[2016-05-29] MEDS ORDERED: CLARIT10 PO (12:15)
[2016-05-29] MEDS ORDERED: NORCO1 TA2 PO (12:15)
[2016-05-29] MEDS ORDERED: VYTORIN 10/20 T1 TAB PO (12:16)
[2016-05-29 17:26] LABS: GLUCOSE BODY FL (NOT ORD) 145 MG/DL; LDH BODY FLUID (NOT ORD) 96 U/L; PROTEIN BODY FLUID 2.2 G/DL
[2016-05-29 18:22] LABS: BD FL LYMPH (NOT ORD) 66 %; BD FL SOURCE (NOT ORD) PLEURAL; BF BASO (NOT OF) 0 %; BF LARGE MONONUCLEAR 24 %; BODY FLUID EOS (NOT ORD) 1 %; BODY FLUID SEG (NOT ORD) 9 %
[2016-05-29 21:16] LABS: BF TOTAL CELL CT (NOT ORD 267 /MM3; BODY FLUID RBC (NOT ORD) 1159 /MM3
[2016-05-30 08:31] LABS: HEMATOCRIT 29.8 % (40.0-51.0); MEAN CORPUS HGB CONC 33.6 g/dL (32.0-36.0); MEAN CORPUSCULAR HEMOGLOB 30.5 pg (26.0-34.0); MEAN CORPUSCULAR VOLUME 90.9 fL (80-100); MEAN PLATELET VOLUME 10.5 fL (9.2-13.0); PLATELET COUNT 101 10/3/uL (150-400); RBC DISTRIBUTION WIDTH 19.8 % (12.0-16.0); RED CELL COUNT 3.28 10/6/uL (4.7-6.1); WHITE BLOOD CELLS 14.4 10/3/uL (4.5-10.5)
[2016-05-30 08:32] LABS: MANUAL DIFF YES %
[2016-05-30 08:48] LABS: ALBUMIN 2.7 G/DL (3.5-5.0); CALCIUM, SERUM 8.5 MG/DL (8.5-10.4); CHLORIDE, SERUM 88 MMOL/L (96-112); CO2 (CARBON DIOXIDE) 29 MMOL/L (24-34); CREATININE 0.81 MG/DL (0.70-1.30); GFR AFRICAN AMERICAN 104 ML/MIN (>=60); GFR NON AFRICAN AMERICAN 90 ML/MIN (>=60); PHOSPHORUS, SERUM 5.1 MG/DL (2.5-4.5); POTASSIUM, SERUM 3.6 MMOL/L (3.5-5.3); SGOT(AST) 25 U/L (5-40); SGPT(ALT) 31 U/L (5-65); SODIUM, SERUM 130 MMOL/L (135-148); TOTAL PROTEIN 5.7 G/DL (6.0-8.5)
[2016-05-30 08:50] LABS: ALKALINE PHOSPHATASE 644 U/L (45-117); BUN (BLOOD UREA NITROGEN) 15 MG/DL (6-23); GLUCOSE, SERUM 125 MG/DL (60-99); INDIRECT BILIRUBIN(NOT ORDER) 2.5 MG/DL (0.1-0.9); TOTAL BILIRUBIN 4.5 MG/DL (0-1.2)
[2016-05-30 09:20] LABS: ANISOCYTOSIS 1+ (5-10/OIF) (0-5/OIF); LYMPHOCYTES 11 %; LYMPHOCYTES ABSOLUTE (CALC) 1.58 10/3/uL (0.67-4.30); MONOCYTES 12 %; MONOCYTES ABSOLUTE (CALC) 1.73 10/3/uL (0.21-1.20); NEUTROPHILS ABSOLUTE (CALC) 11.09 10/3/uL (2.02-8.40); PLATELET ESTIMATE SLT DEC (ADEQUATE); SEGMENTED NEUTROPHIL (0) 77 %; TOTAL NUCLEATED CELLS 100
[2016-05-30 17:10] LABS: SODIUM, URINE 49 MEQ/L
[2016-05-30 17:12] LABS: OSMOLALITY, URINE 502 MOSM/KG (50-1200)
[2016-05-31 06:36] LABS: MEAN CORPUS HGB CONC 34.5 g/dL (32.0-36.0); MEAN CORPUSCULAR HEMOGLOB 31.5 pg (26.0-34.0); MEAN CORPUSCULAR VOLUME 91.3 fL (80-100); MEAN PLATELET VOLUME 10.4 fL (9.2-13.0); PLATELET COUNT 91 10/3/uL (150-400); RBC DISTRIBUTION WIDTH 19.6 % (12.0-16.0); RED CELL COUNT 2.86 10/6/uL (4.7-6.1); WHITE BLOOD CELLS 14.6 10/3/uL (4.5-10.5)
[2016-05-31 06:42] LABS: HEMATOCRIT 26.1 % (40.0-51.0); MANUAL DIFF YES %
[2016-05-31 06:46] LABS: BUN (BLOOD UREA NITROGEN) 16 MG/DL (6-23); CALCIUM, SERUM 8.1 MG/DL (8.5-10.4); CHLORIDE, SERUM 89 MMOL/L (96-112); CO2 (CARBON DIOXIDE) 28 MMOL/L (24-34); GFR AFRICAN AMERICAN 111 ML/MIN (>=60); GFR NON AFRICAN AMERICAN 96 ML/MIN (>=60); GLUCOSE, SERUM 111 MG/DL (60-99); POTASSIUM, SERUM 4.1 MMOL/L (3.5-5.3); SODIUM, SERUM 129 MMOL/L (135-148)
[2016-05-31 06:56] LABS: ANISOCYTOSIS 1+ (5-10/OIF) (0-5/OIF); BAND NEUTROPHILS 2 %; LYMPHOCYTES 10 %; LYMPHOCYTES ABSOLUTE (CALC) 1.46 10/3/uL (0.67-4.30); MONOCYTES 5 %; MONOCYTES ABSOLUTE (CALC) 0.73 10/3/uL (0.21-1.20); NEUTROPHILS ABSOLUTE (CALC) 12.41 10/3/uL (2.02-8.40); PLATELET ESTIMATE DEC (ADEQUATE); SEGMENTED NEUTROPHIL (0) 83 %; TOTAL NUCLEATED CELLS 100
[2016-06-01 04:14] LABS: HEMATOCRIT 25.5 % (40.0-51.0); HEMOGLOBIN 8.8 g/dL (13.6-17.8); MEAN CORPUS HGB CONC 34.5 g/dL (32.0-36.0); MEAN CORPUSCULAR HEMOGLOB 30.9 pg (26.0-34.0); MEAN CORPUSCULAR VOLUME 89.5 fL (80-100); MEAN PLATELET VOLUME 9.9 fL (9.2-13.0); PLATELET COUNT 91 10/3/uL (150-400); RBC DISTRIBUTION WIDTH 19.2 % (12.0-16.0); RED CELL COUNT 2.85 10/6/uL (4.7-6.1); WHITE BLOOD CELLS 13.9 10/3/uL (4.5-10.5)
[2016-06-01 04:15] LABS: MANUAL DIFF YES %
[2016-06-01 04:28] LABS: A/G RATIO 0.9 (0.7-1.9); ALBUMIN 2.5 G/DL (3.5-5.0); BUN (BLOOD UREA NITROGEN) 15 MG/DL (6-23); CALCIUM, SERUM 8.1 MG/DL (8.5-10.4); CHLORIDE, SERUM 84 MMOL/L (96-112); CO2 (CARBON DIOXIDE) 29 MMOL/L (24-34); CREATININE 0.65 MG/DL (0.70-1.30); GFR AFRICAN AMERICAN 114 ML/MIN (>=60); GFR NON AFRICAN AMERICAN 99 ML/MIN (>=60); GLOBULIN 2.8 G/DL (2.5-4.1); GLUCOSE, SERUM 113 MG/DL (60-99); POTASSIUM, SERUM 3.8 MMOL/L (3.5-5.3); SGOT(AST) 23 U/L (5-40); SGPT(ALT) 26 U/L (5-65); SODIUM, SERUM 124 MMOL/L (135-148); TOTAL PROTEIN 5.3 G/DL (6.0-8.5)
[2016-06-01 04:29] LABS: ALKALINE PHOSPHATASE 590 U/L (45-117); PHOSPHORUS, SERUM 3.9 MG/DL (2.5-4.5); TOTAL BILIRUBIN 2.9 MG/DL (0-1.2)
[2016-06-01 04:32] LABS: ATYPICAL LYMPH FEW (3-5%) (0-5%); BAND NEUTROPHILS 1 %; LYMPHOCYTES 8 %; LYMPHOCYTES ABSOLUTE (CALC) 1.11 10/3/uL (0.67-4.30); MONOCYTES 7 %; MONOCYTES ABSOLUTE (CALC) 0.97 10/3/uL (0.21-1.20); NEUTROPHILS ABSOLUTE (CALC) 11.82 10/3/uL (2.02-8.40); PLATELET ESTIMATE DEC (ADEQUATE); RBC MORPHOLOGY ABN (NORMAL); SEGMENTED NEUTROPHIL (0) 84 %; TOTAL NUCLEATED CELLS 100
[2016-06-01 17:25] LABS: DIRECT BILIRUBIN 1.2 MG/DL (0.0-0.4); INDIRECT BILIRUBIN(NOT ORDER) 1.7 MG/DL (0.1-0.9)
[2016-06-02 06:25] LABS: HEMATOCRIT 25.3 % (40.0-51.0); HEMOGLOBIN 8.9 g/dL (13.6-17.8); MEAN CORPUS HGB CONC 35.2 g/dL (32.0-36.0); MEAN CORPUSCULAR HEMOGLOB 31.7 pg (26.0-34.0); MEAN PLATELET VOLUME 10.4 fL (9.2-13.0); PLATELET COUNT 94 10/3/uL (150-400); RBC DISTRIBUTION WIDTH 19.5 % (12.0-16.0); RED CELL COUNT 2.81 10/6/uL (4.7-6.1); WHITE BLOOD CELLS 14.2 10/3/uL (4.5-10.5)
[2016-06-02 06:28] LABS: MANUAL DIFF YES %
[2016-06-02 06:40] LABS: ALBUMIN 2.5 G/DL (3.5-5.0); BUN (BLOOD UREA NITROGEN) 16 MG/DL (6-23); CALCIUM, SERUM 7.9 MG/DL (8.5-10.4); CHLORIDE, SERUM 86 MMOL/L (96-112); CO2 (CARBON DIOXIDE) 30 MMOL/L (24-34); CREATININE 0.76 MG/DL (0.70-1.30); GFR AFRICAN AMERICAN 107 ML/MIN (>=60); GFR NON AFRICAN AMERICAN 92 ML/MIN (>=60); GLOBULIN 2.6 G/DL (2.5-4.1); POTASSIUM, SERUM 3.8 MMOL/L (3.5-5.3); SGPT(ALT) 19 U/L (5-65); SODIUM, SERUM 126 MMOL/L (135-148); TOTAL BILIRUBIN 2.5 MG/DL (0-1.2); TOTAL PROTEIN 5.1 G/DL (6.0-8.5)
[2016-06-02 06:42] LABS: ALKALINE PHOSPHATASE 525 U/L (45-117); GLUCOSE, SERUM 84 MG/DL (60-99); SGOT(AST) 27 U/L (5-40)
[2016-06-02 06:49] LABS: BAND NEUTROPHILS 9 %; LYMPHOCYTES 15 %; LYMPHOCYTES ABSOLUTE (CALC) 2.13 10/3/uL (0.67-4.30); MONOCYTES 6 %; MONOCYTES ABSOLUTE (CALC) 0.85 10/3/uL (0.21-1.20); NEUTROPHILS ABSOLUTE (CALC) 11.22 10/3/uL (2.02-8.40); SEGMENTED NEUTROPHIL (0) 70 %; TOTAL NUCLEATED CELLS 100
[2016-06-02 06:50] LABS: POLYCHROMASIA 1+ (2-5/OIF) (0-1/OIF); TOXIC GRANULATION 1+
[2016-06-02 10:02] LABS: RETICULOCYTE COUNT 10.1 % (0.5-2.5); RETICULOCYTE COUNT ABSOLUTE 299.3 10/3/uL (20.2-119.8)
[2016-06-03 05:47] LABS: BUN (BLOOD UREA NITROGEN) 16 MG/DL (6-23); CALCIUM, SERUM 8.2 MG/DL (8.5-10.4); CHLORIDE, SERUM 88 MMOL/L (96-112); CO2 (CARBON DIOXIDE) 29 MMOL/L (24-34); GFR AFRICAN AMERICAN 111 ML/MIN (>=60); GFR NON AFRICAN AMERICAN 96 ML/MIN (>=60); POTASSIUM, SERUM 3.7 MMOL/L (3.5-5.3); SODIUM, SERUM 125 MMOL/L (135-148)
[2016-06-03 05:48] LABS: GLUCOSE, SERUM 106 MG/DL (60-99)
[2016-06-04 05:07] LABS: A/G RATIO 0.9 (0.7-1.9); ALBUMIN 2.6 G/DL (3.5-5.0); BUN (BLOOD UREA NITROGEN) 17 MG/DL (6-23); CALCIUM, SERUM 8.2 MG/DL (8.5-10.4); CHLORIDE, SERUM 92 MMOL/L (96-112); CO2 (CARBON DIOXIDE) 28 MMOL/L (24-34); GFR AFRICAN AMERICAN 111 ML/MIN (>=60); GFR NON AFRICAN AMERICAN 96 ML/MIN (>=60); GLOBULIN 2.8 G/DL (2.5-4.1); GLUCOSE, SERUM 114 MG/DL (60-99); POTASSIUM, SERUM 3.6 MMOL/L (3.5-5.3); SGOT(AST) 21 U/L (5-40); SGPT(ALT) 18 U/L (5-65); SODIUM, SERUM 130 MMOL/L (135-148); TOTAL PROTEIN 5.4 G/DL (6.0-8.5)
[2016-06-04 05:11] LABS: ALKALINE PHOSPHATASE 542 U/L (45-117); TOTAL BILIRUBIN 1.9 MG/DL (0-1.2)
[2016-06-04 07:45] LABS: HEPATITIS B SURFACE ANTIGEN NON-REACTIVE (NON-REACT)
[2016-06-04 08:06] LABS: HEPATITIS C ANTIBODY NON-REACTIVE (NON-REACT)
[2016-06-04 08:07] LABS: HEPATITIS B CORE AB IGM NON-REACTIVE (NON-REAC)
[2016-06-04 08:08] LABS: HEP A ANTIBODY IGM NON-REACTIVE (NON-REACT)
[2016-06-04 08:48] LABS: HEMATOCRIT 26.1 % (40.0-51.0); HEMOGLOBIN 8.9 g/dL (13.6-17.8); MANUAL DIFF YES %; MEAN CORPUS HGB CONC 34.1 g/dL (32.0-36.0); MEAN CORPUSCULAR HEMOGLOB 31.3 pg (26.0-34.0); MEAN CORPUSCULAR VOLUME 91.9 fL (80-100); MEAN PLATELET VOLUME 9.9 fL (9.2-13.0); PLATELET COUNT 96 10/3/uL (150-400); RBC DISTRIBUTION WIDTH 19.3 % (12.0-16.0); RED CELL COUNT 2.84 10/6/uL (4.7-6.1); RETICULOCYTE COUNT 10.6 % (0.5-2.5); RETICULOCYTE COUNT ABSOLUTE 302.2 10/3/uL (20.2-119.8); WHITE BLOOD CELLS 12.7 10/3/uL (4.5-10.5)
[2016-06-04 09:23] LABS: ANISOCYTOSIS 1+ (5-10/OIF) (0-5/OIF); BAND NEUTROPHILS 4 %; IMMATURE GRANS ABSOLUTE (CALC) 0.25 10/3/uL (0.0-0.11); LYMPHOCYTES 18 %; LYMPHOCYTES ABSOLUTE (CALC) 2.29 10/3/uL (0.67-4.30); METAMYELOCYTES 2 %; MONOCYTES 16 %; MONOCYTES ABSOLUTE (CALC) 2.03 10/3/uL (0.21-1.20); NEUTROPHILS ABSOLUTE (CALC) 8.13 10/3/uL (2.02-8.40); PLATELET ESTIMATE DEC (ADEQUATE); SEGMENTED NEUTROPHIL (0) 60 %; TOTAL NUCLEATED CELLS 100
[2016-06-05 06:43] LABS: HEMATOCRIT 27.1 % (40.0-51.0); HEMOGLOBIN 9.3 g/dL (13.6-17.8); MEAN CORPUS HGB CONC 34.3 g/dL (32.0-36.0); MEAN CORPUSCULAR HEMOGLOB 31.3 pg (26.0-34.0); MEAN CORPUSCULAR VOLUME 91.2 fL (80-100); MEAN PLATELET VOLUME 10.5 fL (9.2-13.0); PLATELET COUNT 102 10/3/uL (150-400); RBC DISTRIBUTION WIDTH 19.4 % (12.0-16.0); RED CELL COUNT 2.97 10/6/uL (4.7-6.1); WHITE BLOOD CELLS 12.4 10/3/uL (4.5-10.5)
[2016-06-05 06:46] LABS: MANUAL DIFF YES %
[2016-06-05 07:00] LABS: A/G RATIO 0.9 (0.7-1.9); ALBUMIN 2.7 G/DL (3.5-5.0); BUN (BLOOD UREA NITROGEN) 20 MG/DL (6-23); CALCIUM, SERUM 8.5 MG/DL (8.5-10.4); CHLORIDE, SERUM 91 MMOL/L (96-112); CO2 (CARBON DIOXIDE) 28 MMOL/L (24-34); CREATININE 0.77 MG/DL (0.70-1.30); GFR AFRICAN AMERICAN 107 ML/MIN (>=60); GFR NON AFRICAN AMERICAN 92 ML/MIN (>=60); GLOBULIN 2.9 G/DL (2.5-4.1); GLUCOSE, SERUM 128 MG/DL (60-99); SGOT(AST) 26 U/L (5-40); SGPT(ALT) 21 U/L (5-65); SODIUM, SERUM 129 MMOL/L (135-148); TOTAL BILIRUBIN 2.1 MG/DL (0-1.2); TOTAL PROTEIN 5.6 G/DL (6.0-8.5)
[2016-06-05 07:01] LABS: ALKALINE PHOSPHATASE 579 U/L (45-117); DIRECT BILIRUBIN 0.9 MG/DL (0.0-0.4); INDIRECT BILIRUBIN(NOT ORDER) 1.2 MG/DL (0.1-0.9)
[2016-06-05 07:29] LABS: ANISOCYTOSIS 1+ (5-10/OIF) (0-5/OIF); BAND NEUTROPHILS 13 %; EOSINOPHILS 1 %; EOSINOPHILS ABSOLUTE (CALC) 0.12 10/3/uL (0.0-0.53); LYMPHOCYTES 18 %; LYMPHOCYTES ABSOLUTE (CALC) 2.23 10/3/uL (0.67-4.30); MACROCYTES 1+ (5-10/OIF) (0-5/OIF); MONOCYTES 22 %; MONOCYTES ABSOLUTE (CALC) 2.73 10/3/uL (0.21-1.20); NEUTROPHILS ABSOLUTE (CALC) 7.32 10/3/uL (2.02-8.40); PLATELET ESTIMATE SLT DEC (ADEQUATE); SEGMENTED NEUTROPHIL (0) 46 %; TOTAL NUCLEATED CELLS 100
[2016-06-05 09:48] LABS: ANA TITER <1:40 TITER
[2016-06-05] MEDS ORDERED: SPIRIVA RESPIMAT INH (21:17)
[2016-06-05] MEDS ORDERED: PROAIR HFA INH (21:18)
[2016-06-05] MEDS ORDERED: BREO ELLIPTA 21 EACH INH (21:18)
[2016-06-05] MEDS ORDERED: KLOR-CON 1010 MEQ PO (21:19)
[2016-06-05] MEDS ORDERED: L40 PO (21:19)
== END 2016-06-06 01:43 | disposition home health service (06) | DRG 824 ==
LOC: ER 20:26 → 4SO 05-29 00:15
PROVIDERS: Emergency Medicine; Hospitalist; Internal Medicine; Internal Medicine Critical Care Medicine; Internal Medicine Gastroenterology; Internal Medicine Hematology & Oncology; Physician Assistant Medical
PROC: BB4BZZZ Ultrasonography of Pleura (ICD-10-PCS; 2016-05-29)
PROC: 0W9B3ZX Drainage of Left Pleural Cavity, Percutaneous Approach, Diagnostic (ICD-10-PCS; principal; 2016-05-29 14:46)
PROC: 07B60ZX Excision of Left Axillary Lymphatic, Open Approach, Diagnostic (ICD-10-PCS; 2016-06-01)
PROC: 07DR3ZX Extraction of Iliac Bone Marrow, Percutaneous Approach, Diagnostic (ICD-10-PCS; 2016-06-04)
PROC: 0JH60WZ Insertion of Totally Implantable Vascular Access Device into Chest Subcutaneous Tissue and Fascia, Open Approach (ICD-10-PCS; 2016-06-05)
PROC: 02HV33Z Insertion of Infusion Device into Superior Vena Cava, Percutaneous Approach (ICD-10-PCS; 2016-06-05)
PROC: B5181ZA Fluoroscopy of Superior Vena Cava using Low Osmolar Contrast, Guidance (ICD-10-PCS; 2016-06-05)
DX: C81.78 Other Hodgkin lymphoma, lymph nodes of multiple sites (principal); E87.1 Hypo-osmolality and hyponatremia; D69.6 Thrombocytopenia, unspecified; R18.8 Other ascites; R06.00 Dyspnea, unspecified; I11.0 Hypertensive heart disease with heart failure; I50.9 Heart failure, unspecified; R16.1 Splenomegaly, not elsewhere classified; R15.9 Full incontinence of feces; K76.1 Chronic passive congestion of liver; I25.10 Atherosclerotic heart disease of native coronary artery without angina pectoris; E11.9 Type 2 diabetes mellitus without complications; L29.9 Pruritus, unspecified; Z95.5 Presence of coronary angioplasty implant and graft; Z91.81 History of falling; F17.210 Nicotine dependence, cigarettes, uncomplicated; T46.5X6A Underdosing of other antihypertensive drugs, initial encounter; T38.3X6A Underdosing of insulin and oral hypoglycemic [antidiabetic] drugs, initial encounter; T45.516A Underdosing of anticoagulants, initial encounter; Z91.128 Patient's intentional underdosing of medication regimen for other reason; Y92.009 Unspecified place in unspecified non-institutional (private) residence as the place of occurrence of the external cause; E80.6 Other disorders of bilirubin metabolism; D64.9 Anemia, unspecified; Z88.8 Allergy status to other drugs, medicaments and biological substances
CPT/HCPCS: 36600; 71010; 71020; 71260; 74177; 77001; 80048; 80053; 80074; 80076; 80305; 80307; 81001; 82140; 82150; 82248; 82330; 82533; 82550; 82553; 82803; 82945; 82947; 82962; 83036; 83615; 83690; 83735; 83880; 83935; 83986; 84100; 84132; 84145; 84157; 84295; 84300; 84443; 84484; 85014; 85025; 85045; 85610; 85730; 86039; 86255; 86880; 87015; 87070; 87102; 87116; 87205; 88112; 88305; 88307; 88311; 88313; 88333; 88341; 88342; 89051; 93005; 93306; 94010; 94640; 94668; 94729; 97116-GP; 97161-GP; 99285; A9270-GY; C1751; J0690; J1940; J2370; J3010

== ENCOUNTER 2016-08-22 07:38 | Inpatient (IN) | payer MEDICARE, BC ==
--- NOTE | ~2016-08-22 | DS ---
Discharge Summary [facility] [address] [place]. [address] NAME: MIAN STANLEY : 45 STATUS : DIS IN PAT#: [id number] AGE: 70 ADM/REG DATE : 08/22/16 MR#: [id number] REPORT SERV DATE: 08/26/16 DICTATED BY: CHRISTY MCKEON DATE: 08/25/16 REPORT STATUS : Draft TRANSCRIBED BY: MODL DATE: 08/25/16 ADMISSION DATE: 08/22/2016 DISCHARGE DATE: 08/25/2016 REASON FOR ADMISSION: Acute on chronic COPD exacerbation, acute hypoxic respiratory failure, and right-sided pneumonia. HISTORY OF PRESENT ILLNESS: Please refer to my history and physical dated 08/22/2016 for complete details regarding the patient admission. In brief, the patient was admitted to the Hospitalist Service for management of the above. HOSPITAL COURSE: Several issues were addressed. 1. Acute hypoxic respiratory failure. The patient came in with some mild respiratory distress, placed on oxygen. He had some initial wheezing on exam by the ER, but by the time I had evaluated him, he had some very mild wheezing and basilar crackles. He had received steroids in the emergency room and was feeling much better. He was weaned off oxygen. He is no longer on oxygen. 2. Acute on chronic COPD exacerbation. He was put on prednisone along with Dulera and inhalers. He resolved from that pretty quickly. 3. Multifocal pneumonia, on chest x-ray and CT scan. The patient was started on Rocephin and azithromycin, and has been treated for four days. His pneumonia is resolving. 4. Leukopenia and thrombocytopenia secondary to chemotherapy, this has been stable. 5. Anemia secondary to chemotherapy. The patient developed some anemia. Hemoccult was negative. He received a unit of packed red blood cells. 6. Lactic acidosis. The patient came in with a lactic acid of over 3. Several hours, it had gone up to 6, which was unexplainable. He was rechecked again and it has been trending down. It is down to around 1 prior to being discharged. 7. Demand ischemia. The patient presented with an elevated troponin. Did not have any EKG changes or chest pain. An echocardiogram was finally obtained, which showed an EF of 50%, some mild diastolic dysfunction, moderate MR, mild TR, severe aortic stenosis and moderate aortic regurgitation. He was initially placed on a heparin drip and this was discontinued after it was felt that was due to demand ischemia. 8. Classical Hodgkin lymphoma stage IV, followed by Dr. Fields. He is to continue his ABVD chemotherapy. He will follow up with Dr. Fields. 9. Severe aortic stenosis, on echocardiogram. We will arrange for outpatient followup with Cardiology to monitor this as an outpatient. 10.Possible pleural effusion, on the CT scan. It was unclear if this was pleural effusion versus infection, however, he did not receive any significant Lasix as symptoms had improved more with antibiotics. The patient has reached maximal hospitalization and will be discharged today in a stable condition. Follow up with Dr. Fields and Cardiology. DISCHARGE DIAGNOSES: Acute hypoxic respiratory failure, now resolved; acute on chronic chronic obstructive pulmonary disease exacerbation, now resolved; multifocal pneumonia, now resolving; leukopenia and anemia secondary to chemotherapy; lactic acidosis, resolved; demand ischemia; classical Hodgkin lymphoma; and severe aortic stenosis. Discharge Summary [address] [address] NAME: MIAN SATNLEY : 45 STATUS : DIS IN PAT#: [id number] AGE: 70 ADM/REG DATE : 08/22/16 MR#: [id number] REPORT SERV DATE: 08/26/16 DICTATED BY: CHRISTY MCKEON DATE: 08/25/16 REPORT STATUS : Draft TRANSCRIBED BY: SULY DATE: 08/25/16 PROCEDURES: Include chest x-ray, CT scan of the chest without contrast, 2D echocardiogram, read by [facility]. DISCHARGE MEDICATIONS: Include aspirin 81 mg daily, Lasix 40 mg daily, azithromycin 250 mg x3 days, Lasix 40 mg every day, Amaryl 2 mg twice a day, potassium chloride 10 mEq daily, Zocor 20 mg at bedtime, Anoro Ellipta daily, and oxycodone p.r.n. pain. FOLLOWUP: The patient will follow up Dr. Fields next week and on Wednesday for a followup PET scan and will also follow up with [facility]. This is Dr. Christy Mckeon spending over 30 minutes discharge planning and coordination of care on Mr. Stanley. DICTATED BY: MD MARIALUISA Fortune/SULY Christy Mckeon MD / [id number] CC: MD Kirill Fortune III, M.D.
--- NOTE | ~2016-08-22 | HP ---
History And Physical [place] [id number] [facility] [place]. [address] NAME: MIAN HOLLAND : 45 STATUS : ADM IN [facility]#: [id number] AGE: 70 ADM/REG DATE : 08/22/16 MR#: [id number] REPORT SERV DATE: 08/22/16 DICTATED BY: CHRISTY MCKEON DATE: 08/22/16 REPORT STATUS : Draft TRANSCRIBED BY: SULY DATE: 08/22/16 DATE OF ADMISSION: 08/22/2016 REASON FOR ADMISSION: Acute on chronic COPD exacerbation. Right-sided pneumonia. CHIEF COMPLAINT: "I started having breathing problems yesterday". HISTORY OF PRESENT ILLNESS: A 70-year-old white male with a recent diagnosis of classic Hodgkin's lymphoma that was diagnosed during the hospitalization in May, currently on chemotherapy. The patient does not remember the name of his oncologist or what chemotherapy regimen he is on but he says that he is about care home through. In fact the patient had a dose of chemotherapy yesterday. He says he was feeling fine before and after chemotherapy but shortly afterwards, he started becoming more short of breath. He admits to a dry cough. No fever or chills. No chest pressure or chest pain. He does admit to some orthopnea in the ER. He came in with some respiratory distress saturating 85% on 5 L, tachycardic with a respiratory rate of 26. He was given a dose of Solu-Medrol, 2 amps of bicarb, a dose of azithromycin, Rocephin, and Bumex. The patient is but his is not currently at his bedside. The patient states that his knows the answers to who his oncologist is but he cannot remember that information. He says he does feel a little better after the above intervention by the emergency room; however, he was on a non-rebreather. He was weaned down to 2 L, saturating 97% in the ER. He states that he does feel much better respiratory-reeder in a sitting position rather than lying in bed. REVIEW OF SYSTEMS: As per HPI, otherwise, 10-point system were reviewed and are negative. PAST MEDICAL HISTORY: Classic Hodgkin's lymphoma, currently on chemotherapy, coronary artery disease, status post PCI x2 to the RCA in 2013, diabetes, hypertension, and COPD. PAST SURGICAL HISTORY: Excisional lymph node biopsy by Dr. Stokes and port placement. FAMILY HISTORY: Diabetes and stroke. ALLERGIES: ARE TO FLEXERIL. SOCIAL HISTORY: He is . He quit smoking cigarettes recently. Denies any alcohol abuse. Retired from the [employer]. He has two sons. CURRENT MEDICATIONS: 1. Aspirin 81 mg daily. 2. Amaryl 2 mg twice a day. 3. Simvastatin 20 mg at bedtime. 4. Anoro Ellipta inhaler daily. PHYSICAL EXAMINATION: VITAL SIGNS: Blood pressure is 158/72, sat 97% on 2 L, temperature is 98.4, pulse is 105, History And Physical [address] [address] NAME: MIAN HOLLAND : 45 STATUS : ADM IN [facility]#: [id number] AGE: 70 ADM/REG DATE : 08/22/16 MR#: [id number] REPORT SERV DATE: 08/22/16 DICTATED BY: CHRISTY MCKEON DATE: 08/22/16 REPORT STATUS : Draft TRANSCRIBED BY: SULY DATE: 08/22/16 and respirations 26. GENERAL: He is in no acute distress, currently at this time alert and oriented x3. He is very pleasant. HEENT: Normocephalic and atraumatic head. Extraocular muscles intact. Oropharynx clear. NECK: Supple. No JVD. CARDIAC: Regular rhythm with tachycardia. No murmurs, rubs, or gallops. PULMONARY: A few mild expiratory wheezing, otherwise decent air movement. ABDOMEN: Soft, nontender, and nondistended. Positive bowel sounds. EXTREMITIES: No clubbing or cyanosis. Trace edema. NEUROLOGIC: No focal deficits. SKIN: Warm and dry. PSYCHIATRIC: The patient is cooperative. Mood is appropriate. LABORATORY DATA: Labs show an ABG with pH of 7.28, pCO2 of 42, and PO2 of 79 on 100% FiO2. BNP of 368. Sodium of 130, carbon dioxide of 23, glucose 329, and alkaline phosphatase 155. White blood cell count 2.2, hemoglobin 8.9, MCV 78, and platelets of 326. Lactic acid of 3.5. Chest x-ray interpreted by myself shows bilateral infiltrates, right greater than left. IMPRESSION: 1. Acute on chronic obstructive pulmonary disease exacerbation. 2. Right lower and right middle lobe pneumonia. 3. Classical Hodgkin's lymphoma on chemotherapy. 4. Leukopenia. 5. Microcytic anemia. 6. Lactic acidosis. 7. History of coronary artery disease, status post PCI. PLAN: The plan is to do prednisone. Continue nebulizers and Dulera. Continue Rocephin and azithromycin. Obtain a sputum culture. Consider getting a CT scan of his chest or a repeat echo to rule out congestive heart failure if the patient is not improving with the above intervention. We will obtain records from [facility]. Put him on a level 2 sliding scale. MARIALUISA/SULY Christy Mckeon MD / [id number] CC: Christy Mckeon MD
[~2016-08-22 07:38] MED LIST changes: +*UNABLE3; +ATARAX50B PO; +BREO ELLIPTA 21 EACH INH; +CLARIT10 PO; +EFFIENT10 PO; +HALF81 PO; +KLOR-CON 1010 MEQ PO; +L40 PO; +NORCO1 TA2 PO; +PROAIR HFA INH; +SPIRIVA RESPIMAT INH; +VYTORIN 10/20 T1 TAB PO; +ZESTRIL20 MG PO
[2016-08-22 07:40] LABS: ALLENS TEST Pos; BE (BASE EXCESS) -7.1 MEQ/L (0 +/- 2.5); CARBOXYHEMOGLOBIN 2.2 % (0-3); DEVICE SM; HCO3 (ACTUAL BICARBONATE) 19.2 MEQ/L (23-27); HEMOBLOGIN CONTENT 9.3 G/DL (14-18); INSTRUMENT SERIAL # 8087; METHEMOGLOBIN 0.4 % (0-3); O2 CONTENT 11.9 VOL% (18-24); PCO2 (CO2 TENSION) 42 MMHG (35-45); PO2 (O2 TENSION) 79 MMHG (79-93); SAMPLE Arterial; pH 7.28 (7.37-7.43)
[2016-08-22 07:55] LABS: BUN (BLOOD UREA NITROGEN) 17 MG/DL (6-23); CALCIUM, SERUM 8.3 MG/DL (8.5-10.4); CHLORIDE, SERUM 96 MMOL/L (96-112); CREATININE 0.79 MG/DL (0.70-1.30); GFR AFRICAN AMERICAN 105 ML/MIN (>=60); GFR NON AFRICAN AMERICAN 91 ML/MIN (>=60); POTASSIUM, SERUM 4.3 MMOL/L (3.5-5.3); SGOT(AST) 13 U/L (5-40); SGPT(ALT) 19 U/L (5-65); SODIUM, SERUM 130 MMOL/L (135-148)
[2016-08-22 07:56] LABS: A/G RATIO 1.3 (0.7-1.9); ALBUMIN 4.2 G/DL (3.5-5.0); ALKALINE PHOSPHATASE 155 U/L (45-117); CO2 (CARBON DIOXIDE) 23 MMOL/L (24-34); GLOBULIN 3.3 G/DL (2.5-4.1); GLUCOSE, SERUM 329 MG/DL (60-99); TOTAL BILIRUBIN 0.6 MG/DL (0-1.2); TOTAL PROTEIN 7.5 G/DL (6.0-8.5)
[2016-08-22 08:17] LABS: BASOPHILS 0.9 %; BASOPHILS ABSOLUTE 0.02 10/3/uL (0.0-0.16); EOSINOPHILS 0.5 %; EOSINOPHILS ABSOLUTE 0.01 10/3/uL (0.0-0.53); HEMATOCRIT 26.4 % (40.0-51.0); HEMOGLOBIN 8.9 g/dL (13.6-17.8); LYMPHOCYTES 21.7 %; LYMPHOCYTES ABSOLUTE 0.47 10/3/uL (0.67-4.30); MEAN CORPUS HGB CONC 33.7 g/dL (32.0-36.0); MEAN PLATELET VOLUME 9.8 fL (9.2-13.0); MONOCYTES 27.2 %; MONOCYTES ABSOLUTE 0.59 10/3/uL (0.21-1.20); NEUTROPHILS 49.7 %; NEUTROPHILS ABSOLUTE 1.08 10/3/uL (2.02-8.40); RBC DISTRIBUTION WIDTH 17.2 % (12.0-16.0); RED CELL COUNT 3.39 10/6/uL (4.7-6.1)
[2016-08-22 08:19] LABS: ER CBC TAT 0 Hrs 12 Mins; MANUAL DIFF NO %; MEAN CORPUSCULAR HEMOGLOB 26.3 pg (26.0-34.0); MEAN CORPUSCULAR VOLUME 77.9 fL (80-100); PLATELET COUNT 326 10/3/uL (150-400); WHITE BLOOD CELLS 2.2 10/3/uL (4.5-10.5)
[2016-08-22 08:52] LABS: PROCALCITONIN 0.12 ng/mL (<0.5)
[2016-08-22 08:54] LABS: ANISOCYTOSIS 1+ (5-10/OIF) (0-5/OIF); BAND NEUTROPHILS 9 %; ER DIFF TAT 0 Hrs 47 Mins; LYMPHOCYTES 32 %; MONOCYTES 18 %; SEGMENTED NEUTROPHIL (0) 41 %; TOTAL NUCLEATED CELLS 100
[2016-08-22 08:55] LABS: ATYPICAL LYMPH MOD (6-10%) (0-5%)
[2016-08-22 08:56] LABS: HYPOCHROMIA 1+ (3-10/OIF) (0-2/OIF); MICROCYTES 1+ (5-10/OIF) (0-5/OIF); PLATELET ESTIMATE ADQ (ADEQUATE); TEARDROP SHAPED RBCS OCC (0-2/OIF)
[2016-08-22 09:10] LABS: LACTATE 3.5 MMOL/L (0.3-2.4)
[2016-08-22] MEDS ORDERED: AMARYL2 PO (09:30)
[2016-08-22] MEDS ORDERED: ASAB PO (09:30)
[2016-08-22] MEDS ORDERED: ANOROELLIPTA INH (09:31)
[2016-08-22] MEDS ORDERED: ZOCOR20 PO (09:31)
[2016-08-22] MEDS ORDERED: OXYCOD PO (09:35)
[2016-08-22 15:07] LABS: INTERNATIONAL NORMAL RATI 1.1 UNITS (-); PROTIME (NOT ORD) 14.4 SEC (12.0-14.5)
[2016-08-22 15:08] LABS: PARTIAL THROMBO TIME 33.6 SEC (22.5-37.2)
[2016-08-22 15:14] LABS: BUN (BLOOD UREA NITROGEN) 19 MG/DL (6-23); CALCIUM, SERUM 8.2 MG/DL (8.5-10.4); CHLORIDE, SERUM 93 MMOL/L (96-112); CO2 (CARBON DIOXIDE) 25 MMOL/L (24-34); CREATININE 1.01 MG/DL (0.70-1.30); GFR AFRICAN AMERICAN 87 ML/MIN (>=60); GFR NON AFRICAN AMERICAN 75 ML/MIN (>=60); PHOSPHORUS, SERUM 4.4 MG/DL (2.5-4.5); POTASSIUM, SERUM 4.5 MMOL/L (3.5-5.3); SODIUM, SERUM 132 MMOL/L (135-148)
[2016-08-22 15:15] LABS: GLUCOSE, SERUM 366 MG/DL (60-99); TROPONIN I 1.36 NG/ML (<0.05)
[2016-08-23 05:32] LABS: MEAN CORPUSCULAR HEMOGLOB 25.7 pg (26.0-34.0); MEAN PLATELET VOLUME 9.9 fL (9.2-13.0); PLATELET COUNT 341 10/3/uL (150-400); RBC DISTRIBUTION WIDTH 17.2 % (12.0-16.0)
[2016-08-23 05:45] LABS: HEMATOCRIT 20.9 % (40.0-51.0); HEMOGLOBIN 6.9 g/dL (13.6-17.8); RED CELL COUNT 2.68 10/6/uL (4.7-6.1); WHITE BLOOD CELLS 4.5 10/3/uL (4.5-10.5)
[2016-08-23 05:47] LABS: MANUAL DIFF YES %
[2016-08-23 05:53] LABS: CALCIUM, SERUM 8.4 MG/DL (8.5-10.4); CHLORIDE, SERUM 95 MMOL/L (96-112); CO2 (CARBON DIOXIDE) 27 MMOL/L (24-34); CREATININE 0.76 MG/DL (0.70-1.30); GFR AFRICAN AMERICAN 107 ML/MIN (>=60); GFR NON AFRICAN AMERICAN 92 ML/MIN (>=60); PHOSPHORUS, SERUM 4.3 MG/DL (2.5-4.5); POTASSIUM, SERUM 4.2 MMOL/L (3.5-5.3); SODIUM, SERUM 132 MMOL/L (135-148)
[2016-08-23 05:59] LABS: BUN (BLOOD UREA NITROGEN) 23 MG/DL (6-23); GLUCOSE, SERUM 133 MG/DL (60-99)
[2016-08-23 06:31] LABS: ANISOCYTOSIS 1+ (5-10/OIF) (0-5/OIF); BAND NEUTROPHILS 9 %; BASOPHILS 1 %; BASOPHILS ABSOLUTE (CALC) 0.05 10/3/uL (0.0-0.16); HYPOCHROMIA 1+ (3-10/OIF) (0-2/OIF); LYMPHOCYTES 19 %; LYMPHOCYTES ABSOLUTE (CALC) 0.86 10/3/uL (0.67-4.30); MONOCYTES 19 %; MONOCYTES ABSOLUTE (CALC) 0.86 10/3/uL (0.21-1.20); NEUTROPHILS ABSOLUTE (CALC) 2.75 10/3/uL (2.02-8.40); PLATELET ESTIMATE ADQ (ADEQUATE); SEGMENTED NEUTROPHIL (0) 52 %; TOTAL NUCLEATED CELLS 100
[2016-08-24 06:44] LABS: BASOPHILS 0.8 %; BASOPHILS ABSOLUTE 0.02 10/3/uL (0.0-0.16); EOSINOPHILS 3.4 %; EOSINOPHILS ABSOLUTE 0.08 10/3/uL (0.0-0.53); HEMATOCRIT 22.8 % (40.0-51.0); HEMOGLOBIN 7.6 g/dL (13.6-17.8); IMMATURE GRANULOCYTES 0.4 %; IMMATURE GRANULOCYTES ABSOLUTE 0.01 10/3/uL (0.0-0.11); LYMPHOCYTES 36.6 %; LYMPHOCYTES ABSOLUTE 0.87 10/3/uL (0.67-4.30); MEAN CORPUS HGB CONC 33.3 g/dL (32.0-36.0); MONOCYTES ABSOLUTE 0.31 10/3/uL (0.21-1.20); NEUTROPHILS 45.8 %; NEUTROPHILS ABSOLUTE 1.09 10/3/uL (2.02-8.40); PLATELET COUNT 262 10/3/uL (150-400); RBC DISTRIBUTION WIDTH 17.7 % (12.0-16.0); RED CELL COUNT 2.82 10/6/uL (4.7-6.1)
[2016-08-24 06:49] LABS: PARTIAL THROMBO TIME 103.1 SEC (22.5-37.2)
[2016-08-24 06:52] LABS: BUN (BLOOD UREA NITROGEN) 22 MG/DL (6-23); CALCIUM, SERUM 8.1 MG/DL (8.5-10.4); CHLORIDE, SERUM 98 MMOL/L (96-112); CO2 (CARBON DIOXIDE) 28 MMOL/L (24-34); CREATININE 0.62 MG/DL (0.70-1.30); GFR AFRICAN AMERICAN 116 ML/MIN (>=60); GFR NON AFRICAN AMERICAN 101 ML/MIN (>=60); PHOSPHORUS, SERUM 4.6 MG/DL (2.5-4.5); POTASSIUM, SERUM 3.9 MMOL/L (3.5-5.3); SODIUM, SERUM 136 MMOL/L (135-148)
[2016-08-24 06:53] LABS: GLUCOSE, SERUM 70 MG/DL (60-99)
[2016-08-24 07:06] LABS: WHITE BLOOD CELLS 2.4 10/3/uL (4.5-10.5)
[2016-08-24 07:07] LABS: MANUAL DIFF NO %; MEAN CORPUSCULAR VOLUME 80.9 fL (80-100)
[2016-08-24] MEDS ORDERED: L40 PO (11:57)
[2016-08-24] MEDS ORDERED: KLOR-CON 1010 MEQ PO (11:59)
[2016-08-24] MEDS ORDERED: K500 PO (12:01)
[2016-08-25 04:16] LABS: BASOPHILS 0.5 %; BASOPHILS ABSOLUTE 0.01 10/3/uL (0.0-0.16); EOSINOPHILS 4.6 %; HEMATOCRIT 21.2 % (40.0-51.0); HEMOGLOBIN 7.1 g/dL (13.6-17.8); IMMATURE GRANULOCYTES 0.9 %; IMMATURE GRANULOCYTES ABSOLUTE 0.02 10/3/uL (0.0-0.11); LYMPHOCYTES 42.5 %; LYMPHOCYTES ABSOLUTE 0.93 10/3/uL (0.67-4.30); MEAN CORPUS HGB CONC 33.5 g/dL (32.0-36.0); MEAN CORPUSCULAR HEMOGLOB 27.1 pg (26.0-34.0); MEAN CORPUSCULAR VOLUME 80.9 fL (80-100); MEAN PLATELET VOLUME 9.8 fL (9.2-13.0); MONOCYTES 5.9 %; MONOCYTES ABSOLUTE 0.13 10/3/uL (0.21-1.20); NEUTROPHILS 45.6 %; PLATELET COUNT 279 10/3/uL (150-400); RED CELL COUNT 2.62 10/6/uL (4.7-6.1)
[2016-08-25 04:18] LABS: MANUAL DIFF NO %; WHITE BLOOD CELLS 2.2 10/3/uL (4.5-10.5)
[2016-08-25 04:32] LABS: BUN (BLOOD UREA NITROGEN) 19 MG/DL (6-23); CHLORIDE, SERUM 98 MMOL/L (96-112); CO2 (CARBON DIOXIDE) 27 MMOL/L (24-34); CREATININE 0.56 MG/DL (0.70-1.30); GFR AFRICAN AMERICAN 121 ML/MIN (>=60); GFR NON AFRICAN AMERICAN 105 ML/MIN (>=60); GLUCOSE, SERUM 74 MG/DL (60-99); PHOSPHORUS, SERUM 4.2 MG/DL (2.5-4.5); SODIUM, SERUM 134 MMOL/L (135-148)
[2016-08-25] MEDS ORDERED: ZITH250 PO (14:38)
== END 2016-08-25 15:12 | disposition home or self-care (01) | DRG 189 ==
LOC: ER 07:38 → 4EA 09:22
PROVIDERS: Emergency Medicine; Internal Medicine
DX: J96.01 Acute respiratory failure with hypoxia (principal); J18.9 Pneumonia, unspecified organism; E87.2 Acidosis; J90 Pleural effusion, not elsewhere classified; C81.90 Hodgkin lymphoma, unspecified, unspecified site; J44.1 Chronic obstructive pulmonary disease with (acute) exacerbation; I24.8 Other forms of acute ischemic heart disease; D50.9 Iron deficiency anemia, unspecified; I25.10 Atherosclerotic heart disease of native coronary artery without angina pectoris; Z95.5 Presence of coronary angioplasty implant and graft; I35.0 Nonrheumatic aortic (valve) stenosis
CPT/HCPCS: 36415; 36600; 71010; 71250; 80048; 80053; 82805; 82962; 83605; 83735; 83880; 84100; 84145; 84484; 85025; 85610; 85730; 86850; 86900; 86901; 86920; 87040; 93005; 93306; 94640; 96365; 96375; 99291; A9270-GY; J0456; J2930; P9016